=== PATIENT | female | born 1965 | race Caucasian/White ===

== ENCOUNTER 2019-05-23 12:49 | Emergency (ER) | payer SELFPAY ==
[~2019-05-23] VITALS: Ht 160 cm; Wt 112.5 kg
--- OUTSIDE RECORDS SUMMARY | 2019-05-23 12:53 | XMS REPORT ---
Author [facility] Address Unknown Phone Unavailable Care Team Providers Care Field Sales Engineer Name Role Phone Unavailable Unavailable Payers Payer Name Policy Type Policy Number Effective Date Expiration Date Problems This patient has no known problems. Allergies, Adverse Reactions, Alerts Allergy Name Allergy Type Status Severity Reaction(s) Onset Date Inactive Date Treating Clinician Comments No Known Allergies DA Active U 2019-05-09 00:00:00 No Known Allergies DA Active U 2019-04-24 00:00:00 No Known Allergies DA Active U 2019-02-19 00:00:00 No Known Allergies DA Active U 2018-11-10 00:00:00 No Known Allergies DA Active U 2018-09-01 00:00:00 No Known Allergies DA Active U 2017-04-13 00:00:00 Medications This patient has no known medications. Encounters Start Date/Time End Date/Time Encounter Type Admission Type Attending Clinicians Care Facility Care Department Encounter ID 2018-04-13 22:28:17 2018-04-13 22:28:17 Emergency [facility] [id number] 2018-04-13 21:20:50 2018-04-13 21:20:50 Outpatient [facility] [id number] Results Test Description Test Time Test Comments Text Results Atomic Results Result Comments GLUBED 2019-05-14 11:24:00 GLUBED (test code=GLUBED) 183 mg/dL 74-106 Performed by certified otr owner operator at [facility] [id number] 07:51:00* Test Item Value Reference Range Comments GLUBED (test code=GLUBED) 165 mg/dL 74-106 Performed by certified otr owner operator at [facility] [id number] 20:39:00* Test Item Value Reference Range Comments GLUBED (test code=GLUBED) 134 mg/dL 74-106 Performed by certified otr owner operator at [facility] [id number] 16:59:00* Test Item Value Reference Range Comments GLUBED (test code=GLUBED) 273 mg/dL 74-106 Performed by certified otr owner operator at [facility] [id number] 12:13:00* Test Item Value Reference Range Comments GLUBED (test code=GLUBED) 213 mg/dL 74-106 Performed by certified otr owner operator at [facility] - XR ABDOMEN AP 1 [id number] 11:34:00 FAX: Michelle Malcolm MSN [place]: B St: ADM FAX: Kade De La Garza MD Name: FLEXDIANA M [facility] : 1965 Age/S: 53/F [address] [facility] Unit #: [id number] Loc: V.3078 [place] [address] Phys: Michelle Malcolm MSN Acct: [id number] Dis Date: Status: ADM IN PHONE #: [phone] Exam Date: 05/13/2019 1120 FAX #: [phone] Reason: abd pain EXAMS: CPT CODE: [id number] XR ABDOMEN AP 1 V 98240 HISTORY: Abdominal pain. COMPARISON: CT abdomen and pelvis from May 09, 2019. No bowel obstruction. Patient is post cholecystectomy. Constipation. Phleboliths. Dextroscoliosis. IMPRESSION: No bowel obstruction. Constipation. at 1134 Reported and signed by: Orlando Babin M.D. CC: Michelle Malcolm; Kade Thornton Technologist: AUDI ADAMS Trnscrd Date/Time/By: (1133) : By: [email or web address] Orig Print D/T: S: 05/13/2019 (5915) PAGE 1 Signed Report [id number] 07:52:00* Test Item Value Reference Range Comments GLUBED (test code=GLUBED) 181 mg/dL 74-106 Performed by certified otr owner operator at [facility] BASIC METABOLIC [id number] 06:22:00* Test Item Value Reference Range Comments SODIUM (test code=NA) 137 mmol/L 136-145 POTASSIUM (test code=K) 3.2 mmol/L 3.5-5.1 CHLORIDE (test code=CL) 100.0 mmol/L 98-107 CARBON DIOXIDE (test code=CO2) 32.0 mmol/L 21-32 ANION GAP (test code=GAP) 8.2 10-20 GLUCOSE (test code=GLU) 175 mg/dL 74-106 BLOOD UREA NITROGEN (test code=BUN) 14 mg/dL 7-18 GLOMERULAR FILTRATION RATE (test code=GFR) > 60 mL/min >=60 Estimated GFR by using Modified MDRD formula.Chronic kidney disease is defined as either kidney damageor GFR <60 mL/min/1.73 m2 for >3 months. CREATININE (test code=CREAT) 0.60 mg/dL 0.55-1.02 Note change in reference range due to change in reagent. BUN/CREATININE RATIO (test code=BUN/CREA) 22.9 10-20 CALCIUM (test code=CA) 9.3 mg/dL 8.5-10.1 BASIC METABOLIC [id number] 06:19:00* Test Item Value Reference Range Comments SODIUM (test code=NA) 137 mmol/L 136-145 POTASSIUM (test code=K) 3.2 mmol/L 3.5-5.1 CHLORIDE (test code=CL) 100.0 mmol/L 98-107 CARBON DIOXIDE (test code=CO2) mmol/L 21-32 ANION GAP (test code=GAP) 10-20 GLUCOSE (test code=GLU) mg/dL 74-106 BLOOD UREA NITROGEN (test code=BUN) mg/dL 7-18 GLOMERULAR FILTRATION RATE (test code=GFR) mL/min >=60 CREATININE (test code=CREAT) mg/dL 0.55-1.02 BUN/CREATININE RATIO (test code=BUN/CREA) 10-20 CALCIUM (test code=CA) mg/dL 8.5-10.1 CBC W/AUTO [id number] 05:50:00* Test Item Value Reference Range Comments WHITE BLOOD CELL (test code=WBC) 6.1 K/mm3 4.5-12.5 RED BLOOD CELL (test code=RBC) 4.05 mill/mm3 3.7-5.2 HEMOGLOBIN (test code=HGB) 11.8 gram/dL 11.5-15.5 HEMATOCRIT (test code=HCT) 34.2 % 36.0-46.0 MEAN CELL VOLUME (test code=MCV) 84.4 fL 80-98 MEAN CELL HGB (test code=MCH) 29.1 picogram 27.0-33.0 MEAN CELL HGB CONCETRATION (test code=MCHC) 34.5 gram/dL 33.0-36.0 RED CELL DISTRIBUTION WIDTH (test code=RDW) 11.9 % 11.6-16.2 RED CELL DISTRIBUTION WIDTH SD (test code=RDW-SD) 36.2 fL 37.0-51.0 PLATELET COUNT (test code=PLT) 188 K/mm3 150-450 MEAN PLATELET VOLUME (test code=MPV) 10.4 fL 6.7-11.0 NEUTROPHIL % (test code=NT%) 50.5 % 39.0-69.0 IMMATURE GRANULOCYTE % (test code=IG%) 0.5 % 0.0-5.0 LYMPHOCYTE % (test code=LY%) 35.3 % 25.0-55.0 MONOCYTE % (test code=MO%) 8.4 % 0.0-10.0 EOSINOPHIL % (test code=EO%) 4.8 % 0.0-5.0 BASOPHIL % (test code=BA%) 0.5 % 0.0-1.0 NUCLEATED RBC % (test code=NRBC%) 0.0 % 0-0 NEUTROPHIL # (test code=NT#) 3.06 K/mm3 1.8-7.7 IMMATURE GRANULOCYTE # (test code=IG#) 0.03 x10 3/uL 0-0.03 LYMPHOCYTE # (test code=LY#) 2.14 K/mm3 1.0-5.0 MONOCYTE # (test code=MO#) 0.51 K/mm3 0-0.8 EOSINOPHIL # (test code=EO#) 0.29 K/mm3 0.0-0.5 BASOPHIL # (test code=BA#) 0.03 K/mm3 0.0-0.2 NUCLEATED RBC # (test code=NRBC#) 0.00 K/mm3 0.0-0.1 [id number] 19:43:00* Test Item Value Reference Range Comments GLUBED (test code=GLUBED) 181 mg/dL 74-106 Performed by certified otr owner operator at [facility] [id number] 16:30:00* Test Item Value Reference Range Comments GLUBED (test code=GLUBED) 266 mg/dL 74-106 Performed by certified otr owner operator at [facility] - USG NDL PLACEMENT (Bxg/Asp)2019-05-12 10:07:00 Name: DIANA MCCORD [facility] : 1965 Age/S: 53 / F [address] [facility] Unit #: [id number] Loc: [place] [address] Phys: Edgar Lundberg MD Acct: [id number] Dis Date: Status: ADM IN PHONE #: [phone] Exam Date: 05/11/2019 1015 FAX #: [phone] Reason: CYSTIC LESION EXAMS: CPT CODE: [id number] USG NDL PLACEMENT (Bxg/Asp) 51319 EXAM: Ultrasound-guided drainage of a cystic liver lesion; conscious sedation; INFORMATION: Patient admitted via the emergency room with abdominal pain. An MRI study has demonstrated a partially septated cystic lesion in the left lobe of the liver. TECHNIQUE AND FINDINGS: Conscious sedation start time: 1050 hours; Completion time: 1101 hours; Under physician supervision 2 mg of Versed and 50 mcg of fentanyl were administered intravenously for moderate sedation. The patient's heart rate, blood pressure and pulse oximetry were continuously monitored by a trained registered nurse. Physician pqoh-ip-cuob sedation time was 11 minutes. Informed consent was obtained and the patient was placed supine on the procedure table. Preliminary sonography confirmed presence of a partially septated cystic lesion in the left lobe of the liver. Conscious sedation was initiated as described above. The patient's skin in the epigastric region was prepped and draped in the usual sterile fashion. Xylocaine was administered and using sonographic guidance an 18-gauge Chiba needle was inserted into the cystic lesion. 220 mL of green fluid was drained and samples were sent to the lab. The needle was then removed. Follow-up imaging showed complete evacuation of the cystic lesion; no evidence of intra- or p erihepatic hemorrhage. IMPRESSION: 1. Successful ultraso und-guided needle drainage of a cystic lesion in the left lobe of the li ana. Greenish fluid content suggests that this lesion may represent a bi liary cystadenoma and less likely a simple hepatic cyst. 2. Cyto logy, chemistry and cultures are pending. Electronically Si gned by Guillermo Lundberg on 05/12/2019 at 1007 Reported and signed by: Edgar Lundberg M.D. PAGE 1 Signed Report (CONTIN UED) Name: DIANA MCCORD [facility] : 1965 Age/S: 53 / F [address] [facility] Unit #: [id number] Loc: [place] [address] Phys: Edgar Triplett ch, MD Acct: [id number] Dis Date: Status: ADM IN PHONE #: [phone] Exam Date: 05/11/2019 1015 FAX #: Reason: CYSTIC LESION EXAMS: CPT CODE: [id number] USG NDL PLACEMENT (Bxg/Asp) 35186 <Continued> CC: Kade Thornton Technologist: NITHYA MCKEON RT(R),RDMS Trnmnb Date/Time: 05/12/2019 (1007) tLUCAS Orig Print D/T: S: 05/12/2019 (1011) Probe: PAGE 2 Signed Report [id number] 07:57:00* Test Item Value Reference Range Comments GLUBED (test code=GLUBED) 193 mg/dL 74-106 Performed by certified otr owner operator at [facility] BODY FLUID CELL [id number] 23:31:00* Test Item Value Reference Range Comments FLUID SOURCE (test code=SOURCEFL) ABSCESS FLUID COLOR (test code=COLFL) GREEN COLORLESS FLUID APPEARANCE (test code=APPFL) HAZY FLUID WBC (test code=WBCFL) TEST NOT PERFORMED per mm3 0-150 FLUID WBC AUTO (test code=WBCFLA) 1 cells/uL FLUID RBC (test code=RBCFL) TEST NOT PERFORMED per mm3 0-50 FLUID RBC AUTO (test code=RBCFLA) 0 cells/uL FLUID TOTAL CELLS (test code=TCFL) 1 cells/uL >0 Fluid WBC RBC Type cells/uL cells/uL CSF (0-5) n/a Peritoneal n/a n/a Pleural n/a n/a Synovial <200 n/a CSF (0-30) n/a TOTAL CELLS COUNTED ON DIFF (test code=TOTCELLFL) 1 cells REVIEWED BY (test code=REVIEW) PATHOLOGIST SPECIMEN COMMENTS: CYSTIC LESION ASPIRATION.SPECIMEN COMMENTS: CYSTIC LESION ASP IRATIONFLUID [id number] 23:31:00* Test Item Value Reference Range Comments FLUID GLUCOSE (test code=GLUFL) 4 mg/dL SPECIMEN COMMENTS: CYSTIC LESION ASPIRATION.SPECIMEN COMMENTS: CYSTIC LESION ASP IRATIONFLUID [id number] 23:31:00* Test Item Value Reference Range Comments FLUID PROTEIN (test code=PROTFL) 0.1 gram/dL SPECIMEN COMMENTS: CYSTIC LESION ASPIRATION.SPECIMEN COMMENTS: CYSTIC LESION ASP IRATIONFLUID [id number] 23:31:00* Test Item Value Reference Range Comments FLUID LDH (test code=LDHFL) < 6 IUnit/L SPECIMEN COMMENTS: CYSTIC LESION ASPIRATION.SPECIMEN COMMENTS: CYSTIC LESION ASP [id number] 20:20:00* Test Item Value Reference Range Comments GLUBED (test code=GLUBED) 174 mg/dL 74-106 Performed by certified otr owner operator at [facility] [id number] 16:35:00* Test Item Value Reference Range Comments GLUBED (test code=GLUBED) 177 mg/dL 74-106 Performed by certified otr owner operator at [facility] LIPASE [id number] 15:45:00* Test Item Value Reference Range Comments LIPASE FLUID (test code=LIPFL) < 10 144-286 SPECIMEN COMMENTS: fluidFLUID [id number] 15:28:00* Test Item Value Reference Range Comments FLUID AMYLASE (test code=AMYFL) < 2 Unit/L BILIRUBIN [id number] 14:32:00* Test Item Value Reference Range Comments BILIRUBIN TOTAL (test code=BILT) 1.80 mg/dL 0.0-1.0 SPECIMEN COMMENTS: Cystic lesion aspiration fluidSPECIMEN COMMENTS: fluid in lab BILBODY FLUID CELL [id number] 14:17:00* Test Item Value Reference Range Comments FLUID SOURCE (test code=SOURCEFL) FLUID COLOR (test code=COLFL) COLORLESS FLUID APPEARANCE (test code=APPFL) FLUID WBC (test code=WBCFL) per mm3 0-150 FLUID WBC AUTO (test code=WBCFLA) 1 cells/uL FLUID RBC (test code=RBCFL) per mm3 0-50 FLUID RBC AUTO (test code=RBCFLA) 0 cells/uL FLUID TOTAL CELLS (test code=TCFL) 1 cells/uL >0 Fluid WBC RBC Type cells/uL cells/uL CSF (0-5) n/a Peritoneal n/a n/a Pleural n/a n/a Synovial <200 n/a CSF (0-30) n/a TOTAL CELLS COUNTED ON DIFF (test code=TOTCELLFL) cells REVIEWED BY (test code=REVIEW) PATHOLOGIST SPECIMEN COMMENTS: CYSTIC LESION ASPIRATION.SPECIMEN COMMENTS: CYSTIC LESION ASP IRATIONFLUID [id number] 14:17:00* Test Item Value Reference Range Comments FLUID GLUCOSE (test code=GLUFL) 4 mg/dL SPECIMEN COMMENTS: CYSTIC LESION ASPIRATION.SPECIMEN COMMENTS: CYSTIC LESION ASP IRATIONFLUID [id number] 14:17:00* Test Item Value Reference Range Comments FLUID PROTEIN (test code=PROTFL) 0.1 gram/dL SPECIMEN COMMENTS: CYSTIC LESION ASPIRATION.SPECIMEN COMMENTS: CYSTIC LESION ASP IRATIONFLUID [id number] 14:17:00* Test Item Value Reference Range Comments FLUID LDH (test code=LDHFL) < 6 IUnit/L SPECIMEN COMMENTS: CYSTIC LESION ASPIRATION.SPECIMEN COMMENTS: CYSTIC LESION ASP IRATIONBODY FLUID CELL [id number] 14:01:00* Test Item Value Reference Range Comments FLUID SOURCE (test code=SOURCEFL) FLUID COLOR (test code=COLFL) COLORLESS FLUID APPEARANCE (test code=APPFL) FLUID WBC (test code=WBCFL) per mm3 0-150 FLUID RBC (test code=RBCFL) per mm3 0-50 FLUID TOTAL CELLS (test code=TCFL) cells/uL >0 TOTAL CELLS COUNTED ON DIFF (test code=TOTCELLFL) cells REVIEWED BY (test code=REVIEW) PATHOLOGIST SPECIMEN COMMENTS: CYSTIC LESION ASPIRATION.SPECIMEN COMMENTS: CYSTIC LESION ASP IRATIONFLUID [id number] 14:01:00* Test Item Value Reference Range Comments FLUID GLUCOSE (test code=GLUFL) 4 mg/dL SPECIMEN COMMENTS: CYSTIC LESION ASPIRATION.SPECIMEN COMMENTS: CYSTIC LESION ASP IRATIONFLUID [id number] 14:01:00* Test Item Value Reference Range Comments FLUID PROTEIN (test code=PROTFL) 0.1 gram/dL SPECIMEN COMMENTS: CYSTIC LESION ASPIRATION.SPECIMEN COMMENTS: CYSTIC LESION ASP IRATIONFLUID [id number] 14:01:00* Test Item Value Reference Range Comments FLUID LDH (test code=LDHFL) < 6 IUnit/L SPECIMEN COMMENTS: CYSTIC LESION ASPIRATION.SPECIMEN COMMENTS: CYSTIC LESION ASP IRATIONBODY FLUID CELL [id number] 13:53:00* Test Item Value Reference Range Comments FLUID SOURCE (test code=SOURCEFL) FLUID COLOR (test code=COLFL) COLORLESS FLUID APPEARANCE (test code=APPFL) FLUID WBC (test code=WBCFL) per mm3 0-150 FLUID RBC (test code=RBCFL) per mm3 0-50 FLUID TOTAL CELLS (test code=TCFL) cells/uL >0 TOTAL CELLS COUNTED ON DIFF (test code=TOTCELLFL) cells REVIEWED BY (test code=REVIEW) PATHOLOGIST SPECIMEN COMMENTS: CYSTIC LESION ASPIRATION.SPECIMEN COMMENTS: CYSTIC LESION ASP IRATIONFLUID [id number] 13:53:00* Test Item Value Reference Range Comments FLUID GLUCOSE (test code=GLUFL) 4 mg/dL SPECIMEN COMMENTS: CYSTIC LESION ASPIRATION.SPECIMEN COMMENTS: CYSTIC LESION ASP IRATIONFLUID [id number] 13:53:00* Test Item Value Reference Range Comments FLUID PROTEIN (test code=PROTFL) gram/dL SPECIMEN COMMENTS: CYSTIC LESION ASPIRATION.SPECIMEN COMMENTS: CYSTIC LESION ASP IRATIONFLUID [id number] 13:53:00* Test Item Value Reference Range Comments FLUID LDH (test code=LDHFL) IUnit/L SPECIMEN COMMENTS: CYSTIC LESION ASPIRATION.SPECIMEN COMMENTS: CYSTIC LESION ASP [id number] 12:02:00* Test Item Value Reference Range Comments GLUBED (test code=GLUBED) 144 mg/dL 74-106 Performed by certified otr owner operator at [facility] - US ABDOMEN [id number] 11:46:00 Name: DIANA MCCORD [facility] : 1965 Age/S: 53 / F [address] [facility] Unit #: [id number] Loc: [place] [address] Phys: Edgar Lundberg MD Acct: [id number] Dis Date: Status: ADM IN PHONE #: [phone] Exam Date: 05/11/2019 1015 FAX #: [phone] Reason: CYSTIC LESION EXAMS: CPT CODE: [id number] ABDOMEN LTD 65828 HISTORY: Cystic lesion. COMPARISON: MRCP and CT scan from previous exam. The liver is hyperechogenic suggesting mild fibrofatty infiltration which slightly limits evaluation for intrahepatic solid mass. Complex septated cystic mass in the left lobe noted again measuring 8.9 x 8.8 x 8.3 cm. Etiology is not clear. Liver measured 19.2 cm in length. No intrahepatic biliary ductal dilatation. The intrahepatic ducts dilatation seen on the CT scan on the left side is not clearly visible. CBD is normal at 4.5 mm. Main portal vein is patent with hepatopedal flow and normal spectral waveform. Patient is post cholecystectomy. No ascites. Right kidney is free from hydronephrosis and calyceal stones. Normal echogenicity and texture. Right kidney measured 12.4 cm in length. Visualized portions of the IVC, aorta and pancreas are normal however imaged incompletely. IMPRESSION: Complex cystic septated mass within the left lobe measuring 8.9 x 8.8 x 8.3 cm. Etiology is not clear. at 1146 Reported and signed by: Orlando Babin M.D. CC: Kade Thornton Technologist: NITHYA MCKEON(R),RDMS Trnscb Date/Time: 05/11/2019 (5288) t.TH4 Orig Print D/T: S: 05/11/2019 (1794) Probe: PAGE 1 Signed Report [id number] 10:03:00* Test Item Value Reference Range Comments GLYCOSYLATED HEMOGLOBIN (HA1C) (test code=GLYHGB) 7.8 % HbA1 4.8-6.0 ESTIMATED AVERAGE GLUCOSE (test code=EAG) 177 MG/DL B-TYPE NATRIURETIC [id number] 09:03:00* Test Item Value Reference Range Comments B-TYPE NATRIURETIC PEPTIDE (test code=BNP) 102.51 pgram/mL 0-100 [id number] 08:51:00* Test Item Value Reference Range Comments GLUBED (test code=GLUBED) 143 mg/dL 74-106 Performed by certified otr owner operator at [facility] BASIC METABOLIC [id number] 08:41:00* Test Item Value Reference Range Comments SODIUM (test code=NA) 140 mmol/L 136-145 POTASSIUM (test code=K) 3.4 mmol/L 3.5-5.1 CHLORIDE (test code=CL) 105.0 mmol/L 98-107 CARBON DIOXIDE (test code=CO2) 30.0 mmol/L 21-32 ANION GAP (test code=GAP) 8.4 10-20 GLUCOSE (test code=GLU) 148 mg/dL 74-106 BLOOD UREA NITROGEN (test code=BUN) 12 mg/dL 7-18 GLOMERULAR FILTRATION RATE (test code=GFR) > 60 mL/min >=60 Estimated GFR by using Modified MDRD formula.Chronic kidney disease is defined as either kidney damageor GFR <60 mL/min/1.73 m2 for >3 months. CREATININE (test code=CREAT) 0.50 mg/dL 0.55-1.02 Note change in reference range due to change in reagent. BUN/CREATININE RATIO (test code=BUN/CREA) 24.0 10-20 CALCIUM (test code=CA) 8.7 mg/dL 8.5-10.1 [id number] 08:41:00* Test Item Value Reference Range Comments MAGNESIUM (test code=MAG) 1.9 mg/dL 1.8-2.4 BASIC METABOLIC [id number] 08:29:00* Test Item Value Reference Range Comments SODIUM (test code=NA) 140 mmol/L 136-145 POTASSIUM (test code=K) 3.4 mmol/L 3.5-5.1 CHLORIDE (test code=CL) 105.0 mmol/L 98-107 CARBON DIOXIDE (test code=CO2) mmol/L 21-32 ANION GAP (test code=GAP) 10-20 GLUCOSE (test code=GLU) mg/dL 74-106 BLOOD UREA NITROGEN (test code=BUN) mg/dL 7-18 GLOMERULAR FILTRATION RATE (test code=GFR) mL/min >=60 CREATININE (test code=CREAT) mg/dL 0.55-1.02 BUN/CREATININE RATIO (test code=BUN/CREA) 10-20 CALCIUM (test code=CA) mg/dL 8.5-10.1 [id number] 08:29:00* Test Item Value Reference Range Comments MAGNESIUM (test code=MAG) mg/dL 1.8-2.4 CBC W/AUTO [id number] 08:24:00* Test Item Value Reference Range Comments WHITE BLOOD CELL (test code=WBC) 7.0 K/mm3 4.5-12.5 RED BLOOD CELL (test code=RBC) 4.35 mill/mm3 3.7-5.2 HEMOGLOBIN (test code=HGB) 12.7 gram/dL 11.5-15.5 HEMATOCRIT (test code=HCT) 37.0 % 36.0-46.0 MEAN CELL VOLUME (test code=MCV) 85.1 fL 80-98 MEAN CELL HGB (test code=MCH) 29.2 picogram 27.0-33.0 MEAN CELL HGB CONCETRATION (test code=MCHC) 34.3 gram/dL 33.0-36.0 RED CELL DISTRIBUTION WIDTH (test code=RDW) 11.9 % 11.6-16.2 RED CELL DISTRIBUTION WIDTH SD (test code=RDW-SD) 36.5 fL 37.0-51.0 PLATELET COUNT (test code=PLT) 224 K/mm3 150-450 MEAN PLATELET VOLUME (test code=MPV) 10.2 fL 6.7-11.0 NEUTROPHIL % (test code=NT%) 55.6 % 39.0-69.0 IMMATURE GRANULOCYTE % (test code=IG%) 0.4 % 0.0-5.0 LYMPHOCYTE % (test code=LY%) 29.0 % 25.0-55.0 MONOCYTE % (test code=MO%) 10.0 % 0.0-10.0 EOSINOPHIL % (test code=EO%) 4.1 % 0.0-5.0 BASOPHIL % (test code=BA%) 0.9 % 0.0-1.0 NUCLEATED RBC % (test code=NRBC%) 0.0 % 0-0 NEUTROPHIL # (test code=NT#) 3.91 K/mm3 1.8-7.7 IMMATURE GRANULOCYTE # (test code=IG#) 0.03 x10 3/uL 0-0.03 LYMPHOCYTE # (test code=LY#) 2.04 K/mm3 1.0-5.0 MONOCYTE # (test code=MO#) 0.70 K/mm3 0-0.8 EOSINOPHIL # (test code=EO#) 0.29 K/mm3 0.0-0.5 BASOPHIL # (test code=BA#) 0.06 K/mm3 0.0-0.2 NUCLEATED RBC # (test code=NRBC#) 0.00 K/mm3 0.0-0.1 CBC W/AUTO [id number] 08:22:00* Test Item Value Reference Range Comments WHITE BLOOD CELL (test code=WBC) K/mm3 4.5-12.5 RED BLOOD CELL (test code=RBC) mill/mm3 3.7-5.2 HEMOGLOBIN (test code=HGB) 12.7 gram/dL 11.5-15.5 HEMATOCRIT (test code=HCT) 37.0 % 36.0-46.0 MEAN CELL VOLUME (test code=MCV) fL 80-98 MEAN CELL HGB (test code=MCH) picogram 27.0-33.0 MEAN CELL HGB CONCETRATION (test code=MCHC) gram/dL 33.0-36.0 RED CELL DISTRIBUTION WIDTH (test code=RDW) % 11.6-16.2 RED CELL DISTRIBUTION WIDTH SD (test code=RDW-SD) fL 37.0-51.0 PLATELET COUNT (test code=PLT) K/mm3 150-450 MEAN PLATELET VOLUME (test code=MPV) fL 6.7-11.0 NEUTROPHIL % (test code=NT%) % 39.0-69.0 IMMATURE GRANULOCYTE % (test code=IG%) % 0.0-5.0 LYMPHOCYTE % (test code=LY%) % 25.0-55.0 MONOCYTE % (test code=MO%) % 0.0-10.0 EOSINOPHIL % (test code=EO%) % 0.0-5.0 BASOPHIL % (test code=BA%) % 0.0-1.0 NEUTROPHIL # (test code=NT#) K/mm3 1.8-7.7 LYMPHOCYTE # (test code=LY#) K/mm3 1.0-5.0 MONOCYTE # (test code=MO#) K/mm3 0-0.8 EOSINOPHIL # (test code=EO#) K/mm3 0.0-0.5 BASOPHIL # (test code=BA#) K/mm3 0.0-0.2 [id number] 20:40:00* Test Item Value Reference Range Comments GLUBED (test code=GLUBED) 222 mg/dL 74-106 Performed by certified otr owner operator at [facility] [id number] 16:20:00* Test Item Value Reference Range Comments GLUBED (test code=GLUBED) 190 mg/dL 74-106 [facility]~ [id number] 11:00:00* Test Item Value Reference Range Comments GLUBED (test code=GLUBED) 160 mg/dL 74-106 Performed by certified otr owner operator at [facility] - MRI ABDOMEN W/O [id number] 09:25:00 FAX: Moiz Martinez MD [place]: B St: ADM Name: DIANA SHELDON [facility] : [birth year] Age/S: 53/F [place] [address] Unit #: [id number] Loc: [place] [address] Phys: Moiz Martinez MD Acct: [id number] Dis Date: Status: ADM IN PHONE #: [phone] Exam Date: 05/10/2019 0855 FAX #: [phone] Reason: investigation of bialoma vs. focal obstruction EXAMS: CPT CODE: [id number] MRI ABDOMEN W/O CONT 21790 HISTORY: Biloma versus focal obstr uction. COMPARISON: CT scan from previous day. MRCP: 3-D images. CBD is normal at 5.2 mm. No filling defects to suggest CBD stones. The common hepatic and the right and left hepatic ducts are normal. Minimal dilatation of the far lateral intrahepatic ducts in association with a complex septated cystic mass seen likely from extrinsic mass effect. The septated cystic lesion measured 8.8 cm. The etiology is not clear. This would be amenable for aspiration. Patient is post cholecystectomy. Pancreatic duct is normal. IMPRESSION: Normal CBD at 5.2 mm. Intrahepatic ducts in the far distal left lobe are mildly dilated which may represent extrinsic mass effect from the complex septated cystic lesion noted within the liver. The lesion m easures 8.8 cm. This would be amenable for aspiration. Electronicall y Signed by Guillermo Babin on 05/10/2019 at 0925 Repo rted and signed by: Orlando Babin M.D. CC: Moiz Martinez MD Technologist: [address])(MR) Trnscrd Date/Time/By: 05/10/2019 (09) : By: [email or web address] Orig Print D/T: S: 05/10/2019 (2137) PAGE 1 Signed Report [id number] 07:59:00* Test Item Value Reference Range Comments GLUBED (test code=GLUBED) 152 mg/dL 74-106 Performed by certified otr owner operator at [facility] [id number] 07:35:00* Test Item Value Reference Range Comments TROPONIN-I (test code=TROPI) 0.017 ng/mL 0-0.045 COMMENTS TO TARIFF SUPERVISOR: COLLECT 3 HOURS AFTER PREVIOUS [id number] 02:04:00* Test Item Value Reference Range Comments TROPONIN-I (test code=TROPI) <0.015 ng/mL 0-0.045 COMMENTS TO TARIFF SUPERVISOR: COLLECT 3 HOURS AFTER PREVIOUS [id number] 01:09:00* Test Item Value Reference Range Comments GLUBED (test code=GLUBED) 156 mg/dL 74-106 Performed by certified otr owner operator at [facility] - CT ABD PELVIS [id number] 20:46:00 Name: DIANA MCCORD [facility] : 1965 Age/S: 53 / F [address] [facility] Unit #: [id number] Loc: [place] [address] Phys: Moiz Martinez MD Acct: [id number] Dis Date: Status: REG ER PHONE #: [phone] Exam Date: 05/09/2019 194 FAX #: [phone] Reason: R. sided abdminal pain EXAMS: CPT CODE: [id number] CT ABD PELVIS W/CONT 55268 REASON FOR EXAM: R. sided abdminal pain EXAM ORDER DATE: 05/09/2019 6:51 PM Ordering M.D.: Moiz Martinez MD PROCEDURE: - CT ABD PELVIS W/CONT COMPARISON: FINDINGS: CT images of the abdomen and pelvis were obtained with IV and without oral contrast at 5mm. Dose modulation, iterative reconstruction, and/or weight based adjustment of the MA/KV was utilized to reduce the radiation dose to as low as reasonably achievable. Intravenous contrast: 100cc of Omnipaque 370. The spleen and pancreas are are grossly within normal limits. The patient is status post cholecystectomy The kidneys are within normal limits. The urinary bladder is unremarkable. The colon, small bowel, and stomach are within normal limits without evidence of obstruction. The appendix is not seen No evidence of free air or free fluid. The uterus is unremarkable. IMPRESSION: 8 cm loculated cystic mass in the left lobe of the liver associated with minimal intrahepatic biliary distention most likely represent a contained biloma or focal intrahepatic biliary obstruction. at 2046 Reported and signed by: Emil Rodriguez M.D. CC: Moiz Martinez MD Technologist:Janice Sinha RT(R); HALEIGH Laughlin CTDI: DLP: Trnscb Date/Time: 05/09/2019 (2045) Poppy Orig Print D/T: S: 05/09/2019 (2048) PAGE 1 Signed Report B-TYPE NATRIURETIC [id number] 18:51:00* Test Item Value Reference Range Comments B-TYPE NATRIURETIC PEPTIDE (test code=BNP) 84.19 pgram/mL 0-100 PROTHROMBIN [id number] 18:14:00* Test Item Value Reference Range Comments PROTHROMBIN TIME PATIENT (test code=PTP) 10.7 seconds 9.0-14.0 INTERNATIONAL NORMAL RATIO (test code=INR) 0.9 0.8-1.2 The therapeutic range for oral anticoagulant therapy formost indications is an international normalized ratio (INR)of between 2.0 and 3.0. The recommended therapeutic INRrange for various clinical situations is listed below: Clinical Situation INR range Pulmonary e mbolism treatment (2.0-3.0)Venous thrombosis treatmentVenous thrombosis prophylaxis (high risk surgery)Prevention of systemic embolism from: Acute myocardial infarction Valvular heart disease Atrial fibrillation Mechanical prosthetic heart valves (2.5-3.5) IS PATIENT ON ANTICOAGULANTS? NTHROMBOPLASTIN TIME [id number] 18:14:00* Test Item Value Reference Range Comments THROMBOPLASTIN TIME PARTIAL (test code=PTT) 30.2 seconds 25.0-36.5 IS PATIENT ON ANTICOAGULANTS? [id number] 18:14:00* Test Item Value Reference Range Comments D-DIMER (test code=DDIMER) 395.00 ng/mLFEU 0-500 Clinical Cut-off value for D- Dimer is 500 ng/mL FEU. Comment: The [employer] D-Dimer assay is intended for use asan aid in the diagnosis of venous thromboembolism (VTE)[deep vein thrombosis (DVT) or pulmonary embolism (PE)].The measurement of D-Dimer should not be used as an aid inthe diagnosis of VTE, in patient with: -Therapeutic dose anticoagulant therapy for >24 hours -Fibrinolytic therapy within previous 7 days -Trauma or surgery within previous 4 weeks -Disseminated malignancies - Aortic aneurysm -Sepsis, severe infections, pneumonia, severe skin infections -Liver cirrhosis - IS PATIENT ON ANTICOAGULANTS? NBASIC METABOLIC [id number] 18:11:00* Test Item Value Reference Range Comments SODIUM (test code=NA) 135 mmol/L 136-145 POTASSIUM (test code=K) 3.4 mmol/L 3.5-5.1 CHLORIDE (test code=CL) 102.0 mmol/L 98-107 CARBON DIOXIDE (test code=CO2) 25.0 mmol/L 21-32 ANION GAP (test code=GAP) 11.4 10-20 GLUCOSE (test code=GLU) 324 mg/dL 74-106 BLOOD UREA NITROGEN (test code=BUN) 20 mg/dL 7-18 GLOMERULAR FILTRATION RATE (test code=GFR) > 60 mL/min >=60 Estimated GFR by using Modified MDRD formula.Chronic kidney disease is defined as either kidney damageor GFR <60 mL/min/1.73 m2 for >3 months. CREATININE (test code=CREAT) 0.70 mg/dL 0.55-1.02 Note change in reference range due to change in reagent. BUN/CREATININE RATIO (test code=BUN/CREA) 28.6 10-20 CALCIUM (test code=CA) 9.5 mg/dL 8.5-10.1 HEPATIC FUNCTION [id number] 18:11:00* Test Item Value Reference Range Comments TOTAL PROTEIN (test code=PROT) 7.8 gram/dL 6.4-8.2 ALBUMIN (test code=ALB) 3.5 g/dL 3.4-5.0 GLOBULIN (test code=GLOB) 4.3 gram/dL 2.7-4.2 ALBUMIN/GLOBULIN RATIO (test code=A/G) 0.8 0.75-1.50 BILIRUBIN TOTAL (test code=BILT) 0.40 mg/dL 0.0-1.0 BILIRUBIN DIRECT (test code=BILD) 0.09 mg/dL 0.0-0.20 SGOT/AST (test code=AST) 20 IUnit/L 15-37 SGPT/ALT (test code=ALT) 27 IUnit/L 12-78 ALKALINE PHOSPHATASE TOTAL (test code=ALKP) 99 IUnit/L 45-117 Note change in reference range due to change in reagent. [id number] 18:11:00* Test Item Value Reference Range Comments LIPASE (test code=LIP) 206 U/L 73.0-393.0 [id number] 18:11:00* Test Item Value Reference Range Comments TROPONIN-I (test code=TROPI) <0.015 ng/mL 0-0.045 BASIC METABOLIC [id number] 17:58:00* Test Item Value Reference Range Comments SODIUM (test code=NA) 135 mmol/L 136-145 POTASSIUM (test code=K) 3.4 mmol/L 3.5-5.1 CHLORIDE (test code=CL) 102.0 mmol/L 98-107 CARBON DIOXIDE (test code=CO2) mmol/L 21-32 ANION GAP (test code=GAP) 10-20 GLUCOSE (test code=GLU) mg/dL 74-106 BLOOD UREA NITROGEN (test code=BUN) mg/dL 7-18 GLOMERULAR FILTRATION RATE (test code=GFR) mL/min >=60 CREATININE (test code=CREAT) mg/dL 0.55-1.02 BUN/CREATININE RATIO (test code=BUN/CREA) 10-20 CALCIUM (test code=CA) mg/dL 8.5-10.1 HEPATIC FUNCTION [id number] 17:58:00* Test Item Value Reference Range Comments TOTAL PROTEIN (test code=PROT) gram/dL 6.4-8.2 ALBUMIN (test code=ALB) g/dL 3.4-5.0 GLOBULIN (test code=GLOB) gram/dL 2.7-4.2 ALBUMIN/GLOBULIN RATIO (test code=A/G) 0.75-1.50 BILIRUBIN TOTAL (test code=BILT) mg/dL 0.0-1.0 BILIRUBIN DIRECT (test code=BILD) mg/dL 0.0-0.20 SGOT/AST (test code=AST) IUnit/L 15-37 SGPT/ALT (test code=ALT) IUnit/L 12-78 ALKALINE PHOSPHATASE TOTAL (test code=ALKP) IUnit/L 45-117 [id number] 17:58:00* Test Item Value Reference Range Comments LIPASE (test code=LIP) U/L 73.0-393.0 [id number] 17:58:00* Test Item Value Reference Range Comments TROPONIN-I (test code=TROPI) ng/mL 0-0.045 - XR CHEST 1 [id number] 17:58:00 FAX: Moiz Martinez MD [place]: St: REG Name: DIANA SHELDON [facility] : [birth year] Age/S: 53/F [address] [facility] Unit #: [id number] Loc: [place] [address] Phys: Moiz Martinez MD Acct: [id number] Dis Date: Status: REG ER PHONE #: [phone] Exam Date: 05/09/2019 1754 FAX #: [phone] Reason: CHEST PAIN EXAMS: CPT CODE: [id number] XR CHEST 1 V 40559 REASON FOR EXAM: CHEST PAIN EXAM ORDER DATE: 05/09/2019 5:27 PM Ordering Guillermo: Moiz Martinez MD PROCEDURE: - XR CHEST 1 V COMPARISON: FINDINGS: Portable AP frontal view of the chest obtained at 5:54 PM shows clear lungs without evidence of consolidation. There is no evidence of effusion. The heart size is within normal limits. Pulmonary vasculatures are unremarkable. IMPRESSION: No active disease. at 8188 Reported and signed by: Emil Rodriguez M.D. CC: Moiz Martinez MD Technologist: RT Tarsha(Adrianne Trnscrd Date/Time/By: 05/09/2019 ( 3638) : By: Poppy Orig Print D/T: S: 05/09/2019 (6255) PAGE 1 Signed Report CBC W/O [id number] 17:45:00* Test Item Value Reference Range Comments WHITE BLOOD CELL (test code=WBC) 8.6 K/mm3 4.5-12.5 RED BLOOD CELL (test code=RBC) 4.79 mill/mm3 3.7-5.2 HEMOGLOBIN (test code=HGB) 14.2 gram/dL 11.5-15.5 HEMATOCRIT (test code=HCT) 39.1 % 36.0-46.0 MEAN CELL VOLUME (test code=MCV) 81.6 fL 80-98 MEAN CELL HGB (test code=MCH) 29.6 picogram 27.0-33.0 MEAN CELL HGB CONCETRATION (test code=MCHC) 36.3 gram/dL 33.0-36.0 RED CELL DISTRIBUTION WIDTH (test code=RDW) 11.9 % 11.6-16.2 PLATELET COUNT (test code=PLT) 246 K/mm3 150-450 MEAN PLATELET VOLUME (test code=MPV) 10.4 fL 6.7-11.0 CBC W/O [id number] 17:39:00* Test Item Value Reference Range Comments WHITE BLOOD CELL (test code=WBC) K/mm3 4.5-12.5 RED BLOOD CELL (test code=RBC) mill/mm3 3.7-5.2 HEMOGLOBIN (test code=HGB) 14.2 gram/dL 11.5-15.5 HEMATOCRIT (test code=HCT) 39.1 % 36.0-46.0 MEAN CELL VOLUME (test code=MCV) fL 80-98 MEAN CELL HGB (test code=MCH) picogram 27.0-33.0 MEAN CELL HGB CONCETRATION (test code=MCHC) gram/dL 33.0-36.0 RED CELL DISTRIBUTION WIDTH (test code=RDW) % 11.6-16.2 PLATELET COUNT (test code=PLT) K/mm3 150-450 MEAN PLATELET VOLUME (test code=MPV) fL 6.7-11.0 [id number] 19:51:00* Test Item Value Reference Range Comments TROPONIN-I (test code=TROPI) 0.02 ng/mL 0.00-0.056 - XR CHEST 2 [id number] 17:38:00 FAX: Michelle Rowland [phone] [place]: [place] St: REG Name: DIANA SHELDON [facility] : [birth year] Age/S: 53/F [address] [facility] [address] Unit #: [id number] Loc: [facility] [address] Phys: Michelle Rowland MD [place], [place] [address] Acct: [id number] Dis Date: Status: REG ER PHONE #: Exam Date: 04/24/2019 1725 FAX #: Reason: chest pain EXAMS: CPT CODE: [id number] XR CHEST 2 V [id number] REASON FOR EXAM: chest pain Exam Order Date: 04/24/2019 5:02 PM Ordering M.Joselyn.: Michelle Rowland MD PROCEDURE: - XR CHEST 2 V COM PARISON: FINDINGS: PA and lateral views of the chest show clear l ungs without evidence of consolidation. No evidence of effusion. The heart size is within normal limits. Pulmonary vasculatures are unremarkable. The osseous structures are grossly intact. IMPRESSION: No ac tive disease. at 1739 Reported and signed by: Emil Rodriguez M.D. CC: Michelle Rowland MD Technologist: JETT KOEHLER RT(R)(CT) Trnscrd Date/Time/By: 04/24/2019 (0757) : By: Poppy Orig Print D/T: S: 04/24/2019 (0858) PAGE 1 Signed Report BASIC METABOLIC [id number] 17:30:00* Test Item Value Reference Range Comments SODIUM (test code=NA) 138 mmol/L 128-145 POTASSIUM (test code=K) 3.2 mmol/L 3.5-5.1 CHLORIDE (test code=CL) 99.0 mmol/L 98-107 CARBON DIOXIDE (test code=CO2) 30.0 mmol/L 22-29 ANION GAP (test code=GAP) 12 mmol/L 10-20 GLUCOSE (test code=GLU) 301 mg/dL 70-110 BLOOD UREA NITROGEN (test code=BUN) 22 mg/dL 7-22 GLOMERULAR FILTRATION RATE (test code=GFR) > 60 mL/min >=60 Estimated GFR by using Modified MDRD formula.Chronic kidney disease is defined as either kidney damageor GFR <60 mL/min/1.73 m2 for >3 months. CREATININE (test code=CREAT) 0.77 mg/dL 0.55-1.3 BUN/CREATININE RATIO (test code=BUN/CREA) 28.6 10-20 CALCIUM (test code=CA) 9.3 mg/dL 8.0-10.5 [id number] 17:30:00* Test Item Value Reference Range Comments TROPONIN-I (test code=TROPI) 0.02 ng/mL 0.00-0.056 B-TYPE NATRIURETIC [id number] 17:24:00* Test Item Value Reference Range Comments B-TYPE NATRIURETIC PEPTIDE (test code=BNP) 68.8 pg/mL 0-100 BASIC METABOLIC [id number] 17:17:00* Test Item Value Reference Range Comments SODIUM (test code=NA) 138 mmol/L 128-145 POTASSIUM (test code=K) 3.2 mmol/L 3.5-5.1 CHLORIDE (test code=CL) 99.0 mmol/L 98-107 CARBON DIOXIDE (test code=CO2) 30.0 mmol/L 22-29 ANION GAP (test code=GAP) 12 mmol/L 10-20 GLUCOSE (test code=GLU) 301 mg/dL 70-110 BLOOD UREA NITROGEN (test code=BUN) 22 mg/dL 7-22 GLOMERULAR FILTRATION RATE (test code=GFR) > 60 mL/min >=60 Estimated GFR by using Modified MDRD formula.Chronic kidney disease is defined as either kidney damageor GFR <60 mL/min/1.73 m2 for >3 months. CREATININE (test code=CREAT) 0.77 mg/dL 0.55-1.3 BUN/CREATININE RATIO (test code=BUN/CREA) 28.6 10-20 CALCIUM (test code=CA) 9.3 mg/dL 8.0-10.5 [id number] 17:17:00* Test Item Value Reference Range Comments TROPONIN-I (test code=TROPI) ng/mL 0-0.045 CBC W/AUTO [id number] 17:06:00* Test Item Value Reference Range Comments WHITE BLOOD CELL (test code=WBC) 7.3 K/mm3 4.5-12.5 RED BLOOD CELL (test code=RBC) 4.37 mill/mm3 3.7-5.2 HEMOGLOBIN (test code=HGB) 13.0 gram/dL 11.5-15.5 HEMATOCRIT (test code=HCT) 36.3 % 36.0-46.0 MEAN CELL VOLUME (test code=MCV) 83.1 fL 80-98 MEAN CELL HGB (test code=MCH) 29.7 picogram 27.0-33.0 MEAN CELL HGB CONCETRATION (test code=MCHC) 35.8 gram/dL 33.0-36.0 RED CELL DISTRIBUTION WIDTH (test code=RDW) 11.9 % 11.6-16.2 RED CELL DISTRIBUTION WIDTH SD (test code=RDW-SD) 36.1 fL 37.0-51.0 PLATELET COUNT (test code=PLT) 203 K/mm3 150-450 MEAN PLATELET VOLUME (test code=MPV) 10.2 fL 6.7-11.0 NEUTROPHIL % (test code=NT%) 60.1 % 39.0-69.0 LYMPHOCYTE % (test code=LY%) 29.0 % 25.0-55.0 MONOCYTE % (test code=MO%) 7.4 % 0.0-10.0 EOSINOPHIL % (test code=EO%) 2.5 % 0.0-5.0 BASOPHIL % (test code=BA%) 0.7 % 0.0-1.0 NEUTROPHIL # (test code=NT#) 4.37 K/mm3 1.8-7.7 LYMPHOCYTE # (test code=LY#) 2.11 K/mm3 1.0-5.0 MONOCYTE # (test code=MO#) 0.54 K/mm3 0-0.8 EOSINOPHIL # (test code=EO#) 0.18 K/mm3 0.0-0.5 BASOPHIL # (test code=BA#) 0.05 K/mm3 0.0-0.2 MANUAL DIFF REQUIRED (test code=MDIFF) NO [id number] 11:20:00* Test Item Value Reference Range Comments GLUBED (test code=GLUBED) 240 mg/dL 74-106 Performed by certified otr owner operator at [facility] [id number] 07:29:00* Test Item Value Reference Range Comments GLUBED (test code=GLUBED) 154 mg/dL 74-106 Performed by certified otr owner operator at [facility] [id number] 20:56:00* Test Item Value Reference Range Comments GLUBED (test code=GLUBED) 148 mg/dL 74-106 Performed by certified otr owner operator at [facility] [id number] 16:11:00* Test Item Value Reference Range Comments GLUBED (test code=GLUBED) 192 mg/dL 74-106 Performed by certified otr owner operator at [facility] [id number] 11:48:00* Test Item Value Reference Range Comments GLUBED (test code=GLUBED) 194 mg/dL 74-106 Performed by certified otr owner operator at [facility] - XR CHEST 2 [id number] 08:54:00 FAX: Kade De La Garza MD [place]: [address] St: ADM FAX: Nan Swan NP [phone] Name: FLEXDIANA Pooja [facility] : 1965 Age/S: 53/F [address] Unit #: [id number] Loc: V.[address] [place] [address] Phys: Nan Swan NP Acct: [id number] Dis Date: Status: ADM IN PHONE #: [phone] Exam Date: 04/13/2019 0843 FAX #: [phone] Reason: pneumonia EXAMS: CPT CODE: [id number] XR CHEST 2 V 87018 HISTORY: Pneumonia. COMPARISON: April 12, 2019. AP and lateral view of the chest: No acute infiltrates, effusion or congestion. Cardiomegaly. DJD of the dorsal spine. IMPRESSION: No acute infiltrates, effusion or congestion. at 0854 Reported and signed by: Orlando Babin M.D. CC: Kade Thornton; Nan Swan NP Technologist: Haleigh AGUSTIN(Adrianne) Trnscrd Date/Time/By: 04/13/2019 (0854) : By: [email or web address] Orig Print D/T: S: 04/13/2019 (0857) PAGE 1 Signed Report [id number] 07:41:00* Test Item Value Reference Range Comments GLUBED (test code=GLUBED) 146 mg/dL 74-106 Performed by certified otr owner operator at [facility] BASIC METABOLIC [id number] 06:03:00* Test Item Value Reference Range Comments SODIUM (test code=NA) 138 mmol/L 136-145 POTASSIUM (test code=K) 3.3 mmol/L 3.5-5.1 CHLORIDE (test code=CL) 102.0 mmol/L 98-107 CARBON DIOXIDE (test code=CO2) 30.0 mmol/L 21-32 ANION GAP (test code=GAP) 9.3 10-20 GLUCOSE (test code=GLU) 141 mg/dL 74-106 BLOOD UREA NITROGEN (test code=BUN) 21 mg/dL 7-18 GLOMERULAR FILTRATION RATE (test code=GFR) > 60 mL/min >=60 Estimated GFR by using Modified MDRD formula.Chronic kidney disease is defined as either kidney damageor GFR <60 mL/min/1.73 m2 for >3 months. CREATININE (test code=CREAT) 0.70 mg/dL 0.55-1.02 Note change in reference range due to change in reagent. BUN/CREATININE RATIO (test code=BUN/CREA) 30.0 10-20 CALCIUM (test code=CA) 8.6 mg/dL 8.5-10.1 BASIC METABOLIC [id number] 05:55:00* Test Item Value Reference Range Comments SODIUM (test code=NA) 138 mmol/L 136-145 POTASSIUM (test code=K) 3.3 mmol/L 3.5-5.1 CHLORIDE (test code=CL) 102.0 mmol/L 98-107 CARBON DIOXIDE (test code=CO2) mmol/L 21-32 ANION GAP (test code=GAP) 10-20 GLUCOSE (test code=GLU) mg/dL 74-106 BLOOD UREA NITROGEN (test code=BUN) mg/dL 7-18 GLOMERULAR FILTRATION RATE (test code=GFR) mL/min >=60 CREATININE (test code=CREAT) mg/dL 0.55-1.02 BUN/CREATININE RATIO (test code=BUN/CREA) 10-20 CALCIUM (test code=CA) mg/dL 8.5-10.1 CBC W/AUTO [id number] 05:38:00* Test Item Value Reference Range Comments WHITE BLOOD CELL (test code=WBC) 7.0 K/mm3 4.5-12.5 RED BLOOD CELL (test code=RBC) 4.09 mill/mm3 3.7-5.2 HEMOGLOBIN (test code=HGB) 12.0 gram/dL 11.5-15.5 HEMATOCRIT (test code=HCT) 34.1 % 36.0-46.0 MEAN CELL VOLUME (test code=MCV) 83.4 fL 80-98 MEAN CELL HGB (test code=MCH) 29.3 picogram 27.0-33.0 MEAN CELL HGB CONCETRATION (test code=MCHC) 35.2 gram/dL 33.0-36.0 RED CELL DISTRIBUTION WIDTH (test code=RDW) 12.3 % 11.6-16.2 RED CELL DISTRIBUTION WIDTH SD (test code=RDW-SD) 37.2 fL 37.0-51.0 PLATELET COUNT (test code=PLT) 191 K/mm3 150-450 MEAN PLATELET VOLUME (test code=MPV) 11.2 fL 6.7-11.0 NEUTROPHIL % (test code=NT%) 51.3 % 39.0-69.0 IMMATURE GRANULOCYTE % (test code=IG%) 0.7 % 0.0-5.0 LYMPHOCYTE % (test code=LY%) 34.4 % 25.0-55.0 MONOCYTE % (test code=MO%) 9.4 % 0.0-10.0 EOSINOPHIL % (test code=EO%) 3.8 % 0.0-5.0 BASOPHIL % (test code=BA%) 0.4 % 0.0-1.0 NUCLEATED RBC % (test code=NRBC%) 0.0 % 0-0 NEUTROPHIL # (test code=NT#) 3.60 K/mm3 1.8-7.7 IMMATURE GRANULOCYTE # (test code=IG#) 0.05 x10 3/uL 0-0.03 LYMPHOCYTE # (test code=LY#) 2.42 K/mm3 1.0-5.0 MONOCYTE # (test code=MO#) 0.66 K/mm3 0-0.8 EOSINOPHIL # (test code=EO#) 0.27 K/mm3 0.0-0.5 BASOPHIL # (test code=BA#) 0.03 K/mm3 0.0-0.2 NUCLEATED RBC # (test code=NRBC#) 0.00 K/mm3 0.0-0.1 MANUAL DIFF REQUIRED (test code=MDIFF) NO [id number] 20:40:00* Test Item Value Reference Range Comments GLUBED (test code=GLUBED) 214 mg/dL 74-106 Performed by certified otr owner operator at [facility] [id number] 16:30:00* Test Item Value Reference Range Comments GLUBED (test code=GLUBED) 247 mg/dL 74-106 Performed by certified otr owner operator at [facility] [id number] 11:44:00* Test Item Value Reference Range Comments GLUBED (test code=GLUBED) 213 mg/dL 74-106 Performed by certified otr owner operator at [facility] [id number] 11:22:00* Test Item Value Reference Range Comments TROPONIN-I (test code=TROPI) 0.015 ng/mL 0-0.045 COMMENTS TO TARIFF SUPERVISOR: COLLECT 3 HOURS AFTER PREVIOUS [id number] 09:18:00* Test Item Value Reference Range Comments GLUBED (test code=GLUBED) 237 mg/dL 74-106 Performed by certified otr owner operator at [facility] [id number] 08:21:00* Test Item Value Reference Range Comments TROPONIN-I (test code=TROPI) 0.018 ng/mL 0-0.045 COMMENTS TO TARIFF SUPERVISOR: COLLECT 3 HOURS AFTER PREVIOUS SAMPLEB-TYPE NATRIURETIC [id number] 02:14:00* Test Item Value Reference Range Comments B-TYPE NATRIURETIC PEPTIDE (test code=BNP) 61.84 pgram/mL 0-100 - XR CHEST 2 [id number] 01:46:00 [place]: St: REG Name: DIANA SHELDON [facility] : [birth year] Age/S: 53/F [address] [facility] Unit #: [id number] Loc: [place] [address] Phys: Ellie Jolly MD Acct: [id number] Dis Date: Status: REG ER PHONE #: [phone] Exam Date: 04/12/2019 0131 FAX #: [phone] Reason: CHEST PAIN EXAMS: CPT CODE: [id number] XR CHEST 2 V 52899 EXAM: Chest 2 views. Location: R16 HISTORY: Chest pain, COMPARISON: 03/04 FINDINGS: PA and lateral views of the chest were obtained. Minimal airspace opacities are noted in the left l ower lobe.. There are no pleural effusions or pneumothorax. The cardiac silhouette is normal in size and contour. Ao rta, pulmonary vasculature and mediastinum are normal. Visualized skeletal structures are within normal limits. IMPRESSION: 1. Mild left lower lobe atelectasis/consolidation. 2. Mild cardiomegaly. at 0146 Reported and signed by: Wilder Alberto CC: Tech nologist: Gabby Delaney Trnmnrd Date/Ti me/By: 04/12/2019 (0146) : By: [email or web address] Orig Print D/T: S: 04/12/2019 (0149) PAGE 1 Signed Report BASIC METABOLIC [id number] 01:37:00* Test Item Value Reference Range Comments SODIUM (test code=NA) 136 mmol/L 136-145 POTASSIUM (test code=K) 3.0 mmol/L 3.5-5.1 CHLORIDE (test code=CL) 101.0 mmol/L 98-107 CARBON DIOXIDE (test code=CO2) 29.0 mmol/L 21-32 ANION GAP (test code=GAP) 9.0 10-20 GLUCOSE (test code=GLU) 138 mg/dL 74-106 BLOOD UREA NITROGEN (test code=BUN) 21 mg/dL 7-18 GLOMERULAR FILTRATION RATE (test code=GFR) > 60 mL/min >=60 Estimated GFR by using Modified MDRD formula.Chronic kidney disease is defined as either kidney damageor GFR <60 mL/min/1.73 m2 for >3 months. CREATININE (test code=CREAT) 0.90 mg/dL 0.55-1.02 Note change in reference range due to change in reagent. BUN/CREATININE RATIO (test code=BUN/CREA) 23.3 10-20 CALCIUM (test code=CA) 8.8 mg/dL 8.5-10.1 HEPATIC FUNCTION [id number] 01:37:00* Test Item Value Reference Range Comments TOTAL PROTEIN (test code=PROT) 7.8 gram/dL 6.4-8.2 ALBUMIN (test code=ALB) 3.7 g/dL 3.4-5.0 GLOBULIN (test code=GLOB) 4.1 gram/dL 2.7-4.2 ALBUMIN/GLOBULIN RATIO (test code=A/G) 0.9 0.75-1.50 BILIRUBIN TOTAL (test code=BILT) 0.40 mg/dL 0.0-1.0 BILIRUBIN DIRECT (test code=BILD) 0.12 mg/dL 0.0-0.20 SGOT/AST (test code=AST) 20 IUnit/L 15-37 SGPT/ALT (test code=ALT) 25 IUnit/L 12-78 ALKALINE PHOSPHATASE TOTAL (test code=ALKP) 111 IUnit/L 45-117 Note change in reference range due to change in reagent. [id number] 01:37:00* Test Item Value Reference Range Comments LIPASE (test code=LIP) 123 U/L 73.0-393.0 [id number] 01:37:00* Test Item Value Reference Range Comments TROPONIN-I (test code=TROPI) <0.015 ng/mL 0-0.045 URINALYSIS [id number] 01:33:00* Test Item Value Reference Range Comments UA COLOR (test code=COLU) Light-Yellow YELLOW UA APPEARANCE (test code=APPU) CLEAR CLEAR UA GLUCOSE DIPSTICK (test code=DGLUU) NEGATIVE mg/dL NEGATIVE UA BILIRUBIN DIPSTICK (test code=BILU) NEGATIVE mg/dL NEGATIVE UA KETONE DIPSTICK (test code=KETU) NEGATIVE mg/dL NEGATIVE UA SPECIFIC GRAVITY (test code=SGU) 1.010 1.001-1.035 UA BLOOD DIPSTICK (test code=SALOME) Negative mg/dL NEGATIVE UA PH DIPSTICK (test code=KYLAH) 6.5 5.0-8.0 UA PROTEIN DIPSTICK (test code=PROU) NEGATIVE mg/dL NEGATIVE UA UROBILINIOGEN DIPSTICK (test code=URO) Normal mg/dL NEGATIVE UA NITRITE DIPSTICK (test code=SARABJIT) NEGATIVE NEGATIVE UA LEUKOCYTE ESTERASE W REFLEX (test code=LEUUR) NEGATIVE Martinez/uL NEGATIVE UA WBC (test code=WBCU) NONE SEEN per HPF 0-5 UA RBC (test code=RBCU) NONE SEEN per HPF 0-5 UA EPITHELIAL CELLS (test code=EPIU) Few (2-5/hpf) per HPF Few UA BACTERIA (test code=BACU) NONE SEEN per HPF NONE Urine Source? Clean CatchDRUGS OF ABUSE SCREEN [id number] 01:33:00* Test Item Value Reference Range Comments URN COCAINE (test code=COCAURN) NEGATIVE <300 ng/mL URN CANNABINOIDS (test code=CANNABURN) NEGATIVE <50 ng/mL URN AMPHETAMINE (test code=AMPHETURN) NEGATIVE <1000 ng/mL URN BARBITURATE (test code=BARBITURN) NEGATIVE <200 ng/mL URN BENZODIAZEPINE (test code=BENZOURN) NEGATIVE <200 ng/mL URN OPIATES (test code=OPIATURN) NEGATIVE <300 ng/mL URN PHENCYCLIDINE (PCP) (test code=PHENCURN) NEGATIVE <25 ng/mL URN METHADONE (test code=METHAURN) NEGATIVE <300 ng/mL Urine Source? Clean CatchURINALYSIS [id number] 01:31:00* Test Item Value Reference Range Comments UA COLOR (test code=COLU) Light-Yellow YELLOW UA APPEARANCE (test code=APPU) CLEAR CLEAR UA GLUCOSE DIPSTICK (test code=DGLUU) NEGATIVE mg/dL NEGATIVE UA BILIRUBIN DIPSTICK (test code=BILU) NEGATIVE mg/dL NEGATIVE UA KETONE DIPSTICK (test code=KETU) NEGATIVE mg/dL NEGATIVE UA SPECIFIC GRAVITY (test code=SGU) 1.010 1.001-1.035 UA BLOOD DIPSTICK (test code=SALOME) Negative mg/dL NEGATIVE UA PH DIPSTICK (test code=KYLAH) 6.5 5.0-8.0 UA PROTEIN DIPSTICK (test code=PROU) NEGATIVE mg/dL NEGATIVE UA UROBILINIOGEN DIPSTICK (test code=URO) Normal mg/dL NEGATIVE UA NITRITE DIPSTICK (test code=SARABJIT) NEGATIVE NEGATIVE UA LEUKOCYTE ESTERASE W REFLEX (test code=LEUUR) NEGATIVE Martinez/uL NEGATIVE UA WBC (test code=WBCU) NONE SEEN per HPF 0-5 UA RBC (test code=RBCU) NONE SEEN per HPF 0-5 UA EPITHELIAL CELLS (test code=EPIU) Few (2-5/hpf) per HPF Few UA BACTERIA (test code=BACU) NONE SEEN per HPF NONE Urine Source? Clean CatchDRUGS OF ABUSE SCREEN [id number] 01:31:00* Test Item Value Reference Range Comments URN COCAINE (test code=COCAURN) <300 ng/mL URN CANNABINOIDS (test code=CANNABURN) <50 ng/mL URN AMPHETAMINE (test code=AMPHETURN) <1000 ng/mL URN BARBITURATE (test code=BARBITURN) <200 ng/mL URN BENZODIAZEPINE (test code=BENZOURN) <200 ng/mL URN OPIATES (test code=OPIATURN) <300 ng/mL URN PHENCYCLIDINE (PCP) (test code=PHENCURN) <25 ng/mL URN METHADONE (test code=METHAURN) <300 ng/mL Urine Source? Clean CatchBASIC METABOLIC [id number] 01:26:00* Test Item Value Reference Range Comments SODIUM (test code=NA) 136 mmol/L 136-145 POTASSIUM (test code=K) 3.0 mmol/L 3.5-5.1 CHLORIDE (test code=CL) 101.0 mmol/L 98-107 CARBON DIOXIDE (test code=CO2) mmol/L 21-32 ANION GAP (test code=GAP) 10-20 GLUCOSE (test code=GLU) mg/dL 74-106 BLOOD UREA NITROGEN (test code=BUN) mg/dL 7-18 GLOMERULAR FILTRATION RATE (test code=GFR) mL/min >=60 CREATININE (test code=CREAT) mg/dL 0.55-1.02 BUN/CREATININE RATIO (test code=BUN/CREA) 10-20 CALCIUM (test code=CA) mg/dL 8.5-10.1 HEPATIC FUNCTION [id number] 01:26:00* Test Item Value Reference Range Comments TOTAL PROTEIN (test code=PROT) gram/dL 6.4-8.2 ALBUMIN (test code=ALB) g/dL 3.4-5.0 GLOBULIN (test code=GLOB) gram/dL 2.7-4.2 ALBUMIN/GLOBULIN RATIO (test code=A/G) 0.75-1.50 BILIRUBIN TOTAL (test code=BILT) mg/dL 0.0-1.0 BILIRUBIN DIRECT (test code=BILD) mg/dL 0.0-0.20 SGOT/AST (test code=AST) IUnit/L 15-37 SGPT/ALT (test code=ALT) IUnit/L 12-78 ALKALINE PHOSPHATASE TOTAL (test code=ALKP) IUnit/L 45-117 [id number] 01:26:00* Test Item Value Reference Range Comments LIPASE (test code=LIP) U/L 73.0-393.0 [id number] 01:26:00* Test Item Value Reference Range Comments TROPONIN-I (test code=TROPI) ng/mL 0-0.045 CBC W/O [id number] 01:25:00* Test Item Value Reference Range Comments WHITE BLOOD CELL (test code=WBC) 8.7 K/mm3 4.5-12.5 RED BLOOD CELL (test code=RBC) 4.45 mill/mm3 3.7-5.2 HEMOGLOBIN (test code=HGB) 12.9 gram/dL 11.5-15.5 HEMATOCRIT (test code=HCT) 36.0 % 36.0-46.0 MEAN CELL VOLUME (test code=MCV) 80.9 fL 80-98 MEAN CELL HGB (test code=MCH) 29.0 picogram 27.0-33.0 MEAN CELL HGB CONCETRATION (test code=MCHC) 35.8 gram/dL 33.0-36.0 RED CELL DISTRIBUTION WIDTH (test code=RDW) 12.2 % 11.6-16.2 PLATELET COUNT (test code=PLT) 220 K/mm3 150-450 MEAN PLATELET VOLUME (test code=MPV) 11.0 fL 6.7-11.0 URINALYSIS [id number] 01:20:00* Test Item Value Reference Range Comments UA COLOR (test code=COLU) Light-Yellow YELLOW UA APPEARANCE (test code=APPU) CLEAR CLEAR UA GLUCOSE DIPSTICK (test code=DGLUU) NEGATIVE mg/dL NEGATIVE UA BILIRUBIN DIPSTICK (test code=BILU) NEGATIVE mg/dL NEGATIVE UA KETONE DIPSTICK (test code=KETU) NEGATIVE mg/dL NEGATIVE UA SPECIFIC GRAVITY (test code=SGU) 1.010 1.001-1.035 UA BLOOD DIPSTICK (test code=SALOME) Negative mg/dL NEGATIVE UA PH DIPSTICK (test code=KYLAH) 6.5 5.0-8.0 UA PROTEIN DIPSTICK (test code=PROU) NEGATIVE mg/dL NEGATIVE UA UROBILINIOGEN DIPSTICK (test code=URO) Normal mg/dL NEGATIVE UA NITRITE DIPSTICK (test code=SARABJIT) NEGATIVE NEGATIVE UA LEUKOCYTE ESTERASE W REFLEX (test code=LEUUR) NEGATIVE Martinez/uL NEGATIVE UA WBC (test code=WBCU) per HPF 0-5 UA RBC (test code=RBCU) per HPF 0-5 UA EPITHELIAL CELLS (test code=EPIU) per HPF Few UA BACTERIA (test code=BACU) per HPF NONE Urine Source? Clean CatchDRUGS OF ABUSE SCREEN [id number] 01:20:00* Test Item Value Reference Range Comments URN COCAINE (test code=COCAURN) <300 ng/mL URN CANNABINOIDS (test code=CANNABURN) <50 ng/mL URN AMPHETAMINE (test code=AMPHETURN) <1000 ng/mL URN BARBITURATE (test code=BARBITURN) <200 ng/mL URN BENZODIAZEPINE (test code=BENZOURN) <200 ng/mL URN OPIATES (test code=OPIATURN) <300 ng/mL URN PHENCYCLIDINE (PCP) (test code=PHENCURN) <25 ng/mL URN METHADONE (test code=METHAURN) <300 ng/mL Urine Source? Clean [id number] 12:53:00* Test Item Value Reference Range Comments GLUBED (test code=GLUBED) 215 mg/dL 74-106 Performed by certified otr owner operator at [facility] [id number] 12:53:00* Test Item Value Reference Range Comments GLUBED (test code=GLUBED) 191 mg/dL 74-106 Performed by certified otr owner operator at [facility] [id number] 12:53:00* Test Item Value Reference Range Comments GLUBED (test code=GLUBED) 280 mg/dL 74-106 Performed by certified otr owner operator at [facility] [id number] 12:53:00* Test Item Value Reference Range Comments GLUBED (test code=GLUBED) 130 mg/dL 74-106 Performed by certified otr owner operator at [facility] [id number] 12:53:00* Test Item Value Reference Range Comments GLUBED (test code=GLUBED) 276 mg/dL 74-106 Performed by certified otr owner operator at [facility] [id number] 16:14:00* Test Item Value Reference Range Comments GLUBED (test code=GLUBED) 126 mg/dL 74-106 Performed by certified otr owner operator at [facility] [id number] 05:27:00* Test Item Value Reference Range Comments GLUBED (test code=GLUBED) 154 mg/dL 74-106 Performed by certified otr owner operator at [facility] [id number] 00:09:00* Test Item Value Reference Range Comments GLUBED (test code=GLUBED) 169 mg/dL 74-106 Performed by certified otr owner operator at [facility] [id number] 21:11:00* Test Item Value Reference Range Comments GLUBED (test code=GLUBED) 180 mg/dL 74-106 Performed by certified otr owner operator at [facility] LIPID PROFILE (CORONARY RISK)2019-03-05 13:18:00* Test Item Value Reference Range Comments TRIGLYCERIDES (test code=TRIG) 213 mg/dL 20-150 CHOLESTEROL (test code=CHOL) 169 mg/dL 0-200 CHOLESTEROL/HDL RATIO (test code=CHOLHDL) 5.0 RATIO 0-4.9 RISK ASSOCIATED WITH CHOL/HDL RATIOS: Risk Male Female1/2 AVERAGE 3.43 3.27AVERAGE 4.97 4.442X AVERAGE 9.55 7.053X AVERAGE 23.39 11.04 REFERENCE VALUE IS RELATED TO RISK LEVELS ASRECOMMENDED BY THE [facility]. HEART, LUNG, AND BLOOD INST. HDL CHOLESTEROL (test code=HDL) 31 mg/dL 40-60 LIPOPROTEIN LDL (test code=LDL) 103 mg/dL 100-129 RN PERSONNEL, CONTACT PHYSICIAN IMMEDIATELY IF THIS IS A STROKE, AMI OR CAROTID STENOSIS PATIENT WHEN THE LDL >100 (1ST OCCURENCE, THIS ADMISSION) Reference Interval: mg/dL mmol/L Optimal <100 <2.6Near/above optimal 100-129 2.6- 3.3Borderline High 130-159 3.4-4.1High 160-189 4.1-4.9Very High >=190 >=4.9=========This LDL result is a direct measurement.========= [id number] 01:37:00* Test Item Value Reference Range Comments TROPONIN-I (test code=TROPI) <0.015 ng/mL 0-0.045 COMMENTS TO TARIFF SUPERVISOR: COLLECT 3 HOURS AFTER PREVIOUS [id number] 22:45:00* Test Item Value Reference Range Comments TROPONIN-I (test code=TROPI) <0.015 ng/mL 0-0.045 COMMENTS TO TARIFF SUPERVISOR: COLLECT 3 HOURS AFTER PREVIOUS SAMPLEURINALYSIS [id number] 22:01:00* Test Item Value Reference Range Comments UA COLOR (test code=COLU) DARK YELLOW YELLOW UA APPEARANCE (test code=APPU) SLIGHTLY CLOUDY CLEAR UA GLUCOSE DIPSTICK (test code=DGLUU) NEGATIVE mg/dL NEGATIVE UA BILIRUBIN DIPSTICK (test code=BILU) NEGATIVE mg/dL NEGATIVE UA KETONE DIPSTICK (test code=KETU) NEGATIVE mg/dL NEGATIVE UA SPECIFIC GRAVITY (test code=SGU) 1.019 1.001-1.035 UA BLOOD DIPSTICK (test code=SALOME) Negative mg/dL NEGATIVE UA PH DIPSTICK (test code=KYLAH) 5.0 5.0-8.0 UA PROTEIN DIPSTICK (test code=PROU) NEGATIVE mg/dL NEGATIVE UA UROBILINIOGEN DIPSTICK (test code=URO) NEGATIVE mg/dL NEGATIVE UA NITRITE DIPSTICK (test code=SARABJIT) NEGATIVE NEGATIVE UA LEUKOCYTE ESTERASE W REFLEX (test code=LEUUR) TRACE Martinez/uL NEGATIVE UA WBC (test code=WBCU) 0-5 per HPF 0-5 UA RBC (test code=RBCU) 0-2 #/HPF 0-5 UA EPITHELIAL CELLS (test code=EPIU) MOD per HPF FEW UA BACTERIA (test code=BACU) FEW #/HPF NONE UA MUCUS (test code=MUCU) FEW #/LPF FEW Urine Source? Clean CatchDRUGS OF ABUSE SCREEN [id number] 22:01:00* Test Item Value Reference Range Comments URN COCAINE (test code=COCAURN) NEGATIVE <300 ng/mL URN CANNABINOIDS (test code=CANNABURN) NEGATIVE <50 ng/mL URN AMPHETAMINE (test code=AMPHETURN) NEGATIVE <1000 ng/mL URN BARBITURATE (test code=BARBITURN) NEGATIVE <200 ng/mL URN BENZODIAZEPINE (test code=BENZOURN) NEGATIVE <200 ng/mL URN OPIATES (test code=OPIATURN) NEGATIVE <300 ng/mL URN PHENCYCLIDINE (PCP) (test code=PHENCURN) NEGATIVE <25 ng/mL URN METHADONE (test code=METHAURN) NEGATIVE <300 ng/mL Urine Source? Clean CatchURINALYSIS [id number] 21:33:00* Test Item Value Reference Range Comments UA COLOR (test code=COLU) DARK YELLOW YELLOW UA APPEARANCE (test code=APPU) SLIGHTLY CLOUDY CLEAR UA GLUCOSE DIPSTICK (test code=DGLUU) NEGATIVE mg/dL NEGATIVE UA BILIRUBIN DIPSTICK (test code=BILU) NEGATIVE mg/dL NEGATIVE UA KETONE DIPSTICK (test code=KETU) NEGATIVE mg/dL NEGATIVE UA SPECIFIC GRAVITY (test code=SGU) 1.019 1.001-1.035 UA BLOOD DIPSTICK (test code=SALOME) Negative mg/dL NEGATIVE UA PH DIPSTICK (test code=KYLAH) 5.0 5.0-8.0 UA PROTEIN DIPSTICK (test code=PROU) NEGATIVE mg/dL NEGATIVE UA UROBILINIOGEN DIPSTICK (test code=URO) NEGATIVE mg/dL NEGATIVE UA NITRITE DIPSTICK (test code=SARABJIT) NEGATIVE NEGATIVE UA LEUKOCYTE ESTERASE W REFLEX (test code=LEUUR) TRACE Martinez/uL NEGATIVE UA WBC (test code=WBCU) 0-5 per HPF 0-5 UA RBC (test code=RBCU) 0-2 #/HPF 0-5 UA EPITHELIAL CELLS (test code=EPIU) MOD per HPF FEW UA BACTERIA (test code=BACU) FEW #/HPF NONE UA MUCUS (test code=MUCU) FEW #/LPF FEW Urine Source? Clean CatchDRUGS OF ABUSE SCREEN [id number] 21:33:00* Test Item Value Reference Range Comments URN COCAINE (test code=COCAURN) <300 ng/mL URN CANNABINOIDS (test code=CANNABURN) <50 ng/mL URN AMPHETAMINE (test code=AMPHETURN) <1000 ng/mL URN BARBITURATE (test code=BARBITURN) <200 ng/mL URN BENZODIAZEPINE (test code=BENZOURN) <200 ng/mL URN OPIATES (test code=OPIATURN) <300 ng/mL URN PHENCYCLIDINE (PCP) (test code=PHENCURN) <25 ng/mL URN METHADONE (test code=METHAURN) <300 ng/mL Urine Source? Clean CatchURINALYSIS [id number] 21:18:00* Test Item Value Reference Range Comments UA COLOR (test code=COLU) DARK YELLOW YELLOW UA APPEARANCE (test code=APPU) SLIGHTLY CLOUDY CLEAR UA GLUCOSE DIPSTICK (test code=DGLUU) NEGATIVE mg/dL NEGATIVE UA BILIRUBIN DIPSTICK (test code=BILU) NEGATIVE mg/dL NEGATIVE UA KETONE DIPSTICK (test code=KETU) NEGATIVE mg/dL NEGATIVE UA SPECIFIC GRAVITY (test code=SGU) 1.019 1.001-1.035 UA BLOOD DIPSTICK (test code=SALOME) Negative mg/dL NEGATIVE UA PH DIPSTICK (test code=KYLAH) 5.0 5.0-8.0 UA PROTEIN DIPSTICK (test code=PROU) NEGATIVE mg/dL NEGATIVE UA UROBILINIOGEN DIPSTICK (test code=URO) NEGATIVE mg/dL NEGATIVE UA NITRITE DIPSTICK (test code=SARABJIT) NEGATIVE NEGATIVE UA LEUKOCYTE ESTERASE W REFLEX (test code=LEUUR) TRACE Martinez/uL NEGATIVE UA WBC (test code=WBCU) per HPF 0-5 UA RBC (test code=RBCU) per HPF 0-5 UA EPITHELIAL CELLS (test code=EPIU) per HPF Few UA BACTERIA (test code=BACU) per HPF NONE Urine Source? Clean CatchDRUGS OF ABUSE SCREEN [id number] 21:18:00* Test Item Value Reference Range Comments URN COCAINE (test code=COCAURN) <300 ng/mL URN CANNABINOIDS (test code=CANNABURN) <50 ng/mL URN AMPHETAMINE (test code=AMPHETURN) <1000 ng/mL URN BARBITURATE (test code=BARBITURN) <200 ng/mL URN BENZODIAZEPINE (test code=BENZOURN) <200 ng/mL URN OPIATES (test code=OPIATURN) <300 ng/mL URN PHENCYCLIDINE (PCP) (test code=PHENCURN) <25 ng/mL URN METHADONE (test code=METHAURN) <300 ng/mL Urine Source? Clean CatchB-TYPE NATRIURETIC [id number] 18:09:00* Test Item Value Reference Range Comments B-TYPE NATRIURETIC PEPTIDE (test code=BNP) 60.03 pgram/mL 0-100 BASIC METABOLIC [id number] 17:56:00* Test Item Value Reference Range Comments SODIUM (test code=NA) 135 mmol/L 136-145 POTASSIUM (test code=K) 3.4 mmol/L 3.5-5.1 CHLORIDE (test code=CL) 97.0 mmol/L 98-107 CARBON DIOXIDE (test code=CO2) 29.0 mmol/L 21-32 ANION GAP (test code=GAP) 12.4 10-20 GLUCOSE (test code=GLU) 360 mg/dL 74-106 BLOOD UREA NITROGEN (test code=BUN) 27 mg/dL 7-18 GLOMERULAR FILTRATION RATE (test code=GFR) 43 mL/min >=60 Estimated GFR by using Modified MDRD formula.Chronic kidney disease is defined as either kidney damageor GFR <60 mL/min/1.73 m2 for >3 months. CREATININE (test code=CREAT) 1.30 mg/dL 0.55-1.02 Note change in reference range due to change in reagent. BUN/CREATININE RATIO (test code=BUN/CREA) 20.8 10-20 CALCIUM (test code=CA) 8.6 mg/dL 8.5-10.1 HEPATIC FUNCTION [id number] 17:56:00* Test Item Value Reference Range Comments TOTAL PROTEIN (test code=PROT) 7.7 gram/dL 6.4-8.2 ALBUMIN (test code=ALB) 3.4 g/dL 3.4-5.0 GLOBULIN (test code=GLOB) 4.3 gram/dL 2.7-4.2 ALBUMIN/GLOBULIN RATIO (test code=A/G) 0.8 0.75-1.50 BILIRUBIN TOTAL (test code=BILT) 0.50 mg/dL 0.0-1.0 BILIRUBIN DIRECT (test code=BILD) 0.11 mg/dL 0.0-0.20 SGOT/AST (test code=AST) 19 IUnit/L 15-37 SGPT/ALT (test code=ALT) 30 IUnit/L 12-78 ALKALINE PHOSPHATASE TOTAL (test code=ALKP) 121 IUnit/L 45-117 Note change in reference range due to change in reagent. CREATINE KINASE (CK)2019-03-04 17:56:00* Test Item Value Reference Range Comments CREATINE KINASE (CK) (test code=CK) 37 IUnit/L 26-208 [id number] 17:56:00* Test Item Value Reference Range Comments LIPASE (test code=LIP) 178 U/L 73.0-393.0 [id number] 17:56:00* Test Item Value Reference Range Comments MAGNESIUM (test code=MAG) 1.6 mg/dL 1.8-2.4 HCG SERUM [id number] 17:56:00* Test Item Value Reference Range Comments HCG SERUM QUAL (test code=HCGQL) NEGATIVE NEGATIVE This HCGQL test is NOT applicable for MALE patients.Check with nurse about probable order error.If Tumor Marker Test needed, nurse should order test "HCGTU"(Test #[id number]) [id number] 17:56:00* Test Item Value Reference Range Comments TROPONIN-I (test code=TROPI) 0.020 ng/mL 0-0.045 BASIC METABOLIC [id number] 17:28:00* Test Item Value Reference Range Comments SODIUM (test code=NA) 135 mmol/L 136-145 POTASSIUM (test code=K) 3.4 mmol/L 3.5-5.1 CHLORIDE (test code=CL) 97.0 mmol/L 98-107 CARBON DIOXIDE (test code=CO2) 29.0 mmol/L 21-32 ANION GAP (test code=GAP) 12.4 10-20 GLUCOSE (test code=GLU) 360 mg/dL 74-106 BLOOD UREA NITROGEN (test code=BUN) 27 mg/dL 7-18 GLOMERULAR FILTRATION RATE (test code=GFR) 43 mL/min >=60 Estimated GFR by using Modified MDRD formula.Chronic kidney disease is defined as either kidney damageor GFR <60 mL/min/1.73 m2 for >3 months. CREATININE (test code=CREAT) 1.30 mg/dL 0.55-1.02 Note change in reference range due to change in reagent. BUN/CREATININE RATIO (test code=BUN/CREA) 20.8 10-20 CALCIUM (test code=CA) 8.6 mg/dL 8.5-10.1 HEPATIC FUNCTION [id number] 17:28:00* Test Item Value Reference Range Comments TOTAL PROTEIN (test code=PROT) 7.7 gram/dL 6.4-8.2 ALBUMIN (test code=ALB) 3.4 g/dL 3.4-5.0 GLOBULIN (test code=GLOB) 4.3 gram/dL 2.7-4.2 ALBUMIN/GLOBULIN RATIO (test code=A/G) 0.8 0.75-1.50 BILIRUBIN TOTAL (test code=BILT) 0.50 mg/dL 0.0-1.0 BILIRUBIN DIRECT (test code=BILD) 0.11 mg/dL 0.0-0.20 SGOT/AST (test code=AST) 19 IUnit/L 15-37 SGPT/ALT (test code=ALT) 30 IUnit/L 12-78 ALKALINE PHOSPHATASE TOTAL (test code=ALKP) 121 IUnit/L 45-117 Note change in reference range due to change in reagent. CREATINE KINASE (CK)2019-03-04 17:28:00* Test Item Value Reference Range Comments CREATINE KINASE (CK) (test code=CK) 37 IUnit/L 26-208 [id number] 17:28:00* Test Item Value Reference Range Comments LIPASE (test code=LIP) 178 U/L 73.0-393.0 [id number] 17:28:00* Test Item Value Reference Range Comments MAGNESIUM (test code=MAG) 1.6 mg/dL 1.8-2.4 HCG SERUM [id number] 17:28:00* Test Item Value Reference Range Comments HCG SERUM QUAL (test code=HCGQL) NEGATIVE [id number] 17:28:00* Test Item Value Reference Range Comments TROPONIN-I (test code=TROPI) 0.020 ng/mL 0-0.045 - XR CHEST 1 [id number] 17:23:00 FAX: Shellie Jean Baptiste [phone] [place]: St: REG Name: DIANA SHELDON [facility] : [birth year] Age/S: 53/F [address] [facility] Unit #: [id number] Loc: P[place]CE [place] [address] Phys: Shellie Metcalf MD Acct: [id number] Dis Date: Status: REG ER PHONE #: [phone] Exam Date: 03/04/2019 1652 FAX #: [phone] Reason: SYNCOPE EXAMS: CPT CODE: [id number] XR CHEST 1 V 10256 EXAM: Chest x-ray, one view; INFORMATION: Syncope, dizziness, blurry vision; IMPRESSION: 1. No evidence of active cardiopulmonary disease. 2. No change compared with a recent study from February 17, 2019; aortic calcifications. at 4343 R eported and signed by: Edgar Lundberg M.D. CC: Shellie Ferrer MD Technologist: Krista Carmona Trnscrd Date/Time/By: 03/04/2019 () : By: AltonGRW Orig Print D/T: S: 03/04/2019 (9421) PAGE 1 Signed Report BASIC METABOLIC [id number] 17:17:00* Test Item Value Reference Range Comments SODIUM (test code=NA) 135 mmol/L 136-145 POTASSIUM (test code=K) 3.4 mmol/L 3.5-5.1 CHLORIDE (test code=CL) 97.0 mmol/L 98-107 CARBON DIOXIDE (test code=CO2) mmol/L 21-32 ANION GAP (test code=GAP) 10-20 GLUCOSE (test code=GLU) mg/dL 74-106 BLOOD UREA NITROGEN (test code=BUN) mg/dL 7-18 GLOMERULAR FILTRATION RATE (test code=GFR) mL/min >=60 CREATININE (test code=CREAT) mg/dL 0.55-1.02 BUN/CREATININE RATIO (test code=BUN/CREA) 10-20 CALCIUM (test code=CA) mg/dL 8.5-10.1 HEPATIC FUNCTION [id number] 17:17:00* Test Item Value Reference Range Comments TOTAL PROTEIN (test code=PROT) gram/dL 6.4-8.2 ALBUMIN (test code=ALB) g/dL 3.4-5.0 GLOBULIN (test code=GLOB) gram/dL 2.7-4.2 ALBUMIN/GLOBULIN RATIO (test code=A/G) 0.75-1.50 BILIRUBIN TOTAL (test code=BILT) mg/dL 0.0-1.0 BILIRUBIN DIRECT (test code=BILD) mg/dL 0.0-0.20 SGOT/AST (test code=AST) IUnit/L 15-37 SGPT/ALT (test code=ALT) IUnit/L 12-78 ALKALINE PHOSPHATASE TOTAL (test code=ALKP) IUnit/L 45-117 CREATINE KINASE (CK)2019-03-04 17:17:00* Test Item Value Reference Range Comments CREATINE KINASE (CK) (test code=CK) IUnit/L 26-208 [id number] 17:17:00* Test Item Value Reference Range Comments LIPASE (test code=LIP) U/L 73.0-393.0 [id number] 17:17:00* Test Item Value Reference Range Comments MAGNESIUM (test code=MAG) mg/dL 1.8-2.4 HCG SERUM [id number] 17:17:00* Test Item Value Reference Range Comments HCG SERUM QUAL (test code=HCGQL) NEGATIVE [id number] 17:17:00* Test Item Value Reference Range Comments TROPONIN-I (test code=TROPI) ng/mL 0-0.045 PROTHROMBIN [id number] 16:58:00* Test Item Value Reference Range Comments PROTHROMBIN TIME PATIENT (test code=PTP) 12.0 seconds 9.0-14.0 INTERNATIONAL NORMAL RATIO (test code=INR) 1.0 0.8-1.2 The therapeutic range for oral anticoagulant therapy formost indications is an international normalized ratio (INR)of between 2.0 and 3.0. The recommended therapeutic INRrange for various clinical situations is listed below: Clinical Situation INR range Pulmonary e mbolism treatment (2.0-3.0)Venous thrombosis treatmentVenous thrombosis prophylaxis (high risk surgery)Prevention of systemic embolism from: Acute myocardial infarction Valvular heart disease Atrial fibrillation Mechanical prosthetic heart valves (2.5-3.5) IS PATIENT ON ANTICOAGULANTS? NTHROMBOPLASTIN TIME [id number] 16:58:00* Test Item Value Reference Range Comments THROMBOPLASTIN TIME PARTIAL (test code=PTT) 26.7 seconds 25.0-36.5 IS PATIENT ON ANTICOAGULANTS? [id number] 16:58:00* Test Item Value Reference Range Comments D-DIMER (test code=DDIMER) 396.00 ng/mLFEU 0-500 Clinical Cut-off value for D- Dimer is 500 ng/mL FEU. Comment: The [employer] D-Dimer assay is intended for use asan aid in the diagnosis of venous thromboembolism (VTE)[deep vein thrombosis (DVT) or pulmonary embolism (PE)].The measurement of D-Dimer should not be used as an aid inthe diagnosis of VTE, in patient with: -Therapeutic dose anticoagulant therapy for >24 hours -Fibrinolytic therapy within previous 7 days -Trauma or surgery within previous 4 weeks -Disseminated malignancies - Aortic aneurysm -Sepsis, severe infections, pneumonia, severe skin infections -Liver cirrhosis - IS PATIENT ON ANTICOAGULANTS? N- CT HEAD/BRAIN W/O [id number] 16:49:00 Name: DIANA MCCORD [facility] : 1965 Age/S: 53 / F [address] Unit #: [id number] Loc: [place] [address] Phys: Jeremiah Metcalf MD Acct: [id number] Di s Date: Status: REG ER PHONE #: Exam Date: 03/04/2019 1646 FAX #: Reason: Syncope EXAMS: CPT CODE: [id number] CT HEAD/BRAIN W/O CONT [id number] EXAM: CT of the head; INFORMATION: Syncope, dizziness, blurry vision; TECHNIQUE AND FINDINGS: CT dose reduction protocol; The ventricles are symmetric and of normal diameter; normal width of basilar cisterns and sulci; normal bingham/white matter differentiation; no evidence of intra or extra-axial hemorrhage, mass lesion or midline shift. Bone windows show no abnormalities. IMPRESSION: Normal CT scan of the head. No change compared with a study from September 01, 2018. at 1649 Reported and signed by: Edgar Lundberg M.D. CC: Shellie Metcalf MD Technologist:Gill Ramirez RT(R)(CT) CTDI: DLP: Trnscb Date/Time: 03/04/2019 (1648) [email or web address] Orig Print D/T: S: 03/04/2019 (1651) CTDI: DLP: PAGE 1 Signed Report CBC W/O DIFF 2019-03-04 16:48:00* Test Item Value Reference Range Comments WHITE BLOOD CELL (test code=WBC) 8.9 K/mm3 4.5-12.5 RED BLOOD CELL (test code=RBC) 4.35 mill/mm3 3.7-5.2 HEMOGLOBIN (test code=HGB) 12.7 gram/dL 11.5-15.5 HEMATOCRIT (test code=HCT) 36.6 % 36.0-46.0 MEAN CELL VOLUME (test code=MCV) 84.1 fL 80-98 MEAN CELL HGB (test code=MCH) 29.2 picogram 27.0-33.0 MEAN CELL HGB CONCETRATION (test code=MCHC) 34.7 gram/dL 33.0-36.0 RED CELL DISTRIBUTION WIDTH (test code=RDW) 11.9 % 11.6-16.2 PLATELET COUNT (test code=PLT) 239 K/mm3 150-450 MEAN PLATELET VOLUME (test code=MPV) 11.4 fL 6.7-11.0 CBC W/O [id number] 16:46:00* Test Item Value Reference Range Comments WHITE BLOOD CELL (test code=WBC) K/mm3 4.5-12.5 RED BLOOD CELL (test code=RBC) mill/mm3 3.7-5.2 HEMOGLOBIN (test code=HGB) 12.7 gram/dL 11.5-15.5 HEMATOCRIT (test code=HCT) 36.6 % 36.0-46.0 MEAN CELL VOLUME (test code=MCV) fL 80-98 MEAN CELL HGB (test code=MCH) picogram 27.0-33.0 MEAN CELL HGB CONCETRATION (test code=MCHC) gram/dL 33.0-36.0 RED CELL DISTRIBUTION WIDTH (test code=RDW) % 11.6-16.2 PLATELET COUNT (test code=PLT) K/mm3 150-450 MEAN PLATELET VOLUME (test code=MPV) fL 6.7-11.0 [id number] 17:13:00* Test Item Value Reference Range Comments D-DIMER (test code=DDIMER) 364.00 ng/mLFEU 0-500 Clinical Cut-off value for D- Dimer is 500 ng/mL FEU. Comment: The [employer] D-Dimer assay is intended for use asan aid in the diagnosis of venous thromboembolism (VTE)[deep vein thrombosis (DVT) or pulmonary embolism (PE)].The measurement of D-Dimer should not be used as an aid inthe diagnosis of VTE, in patient with: -Therapeutic dose anticoagulant therapy for >24 hours -Fibrinolytic therapy within previous 7 days -Trauma or surgery within previous 4 weeks -Disseminated malignancies - Aortic aneurysm -Sepsis, severe infections, pneumonia, severe skin infections -Liver cirrhosis - BASIC METABOLIC [id number] 17:04:00* Test Item Value Reference Range Comments SODIUM (test code=NA) 135 mmol/L 136-145 POTASSIUM (test code=K) 3.6 mmol/L 3.5-5.1 CHLORIDE (test code=CL) 99.0 mmol/L 98-107 CARBON DIOXIDE (test code=CO2) 29.0 mmol/L 21-32 ANION GAP (test code=GAP) 10.6 10-20 GLUCOSE (test code=GLU) 257 mg/dL 74-106 BLOOD UREA NITROGEN (test code=BUN) 22 mg/dL 7-18 GLOMERULAR FILTRATION RATE (test code=GFR) > 60 mL/min >=60 Estimated GFR by using Modified MDRD formula.Chronic kidney disease is defined as either kidney damageor GFR <60 mL/min/1.73 m2 for >3 months. CREATININE (test code=CREAT) 0.70 mg/dL 0.55-1.02 Note change in reference range due to change in reagent. BUN/CREATININE RATIO (test code=BUN/CREA) 31.4 10-20 CALCIUM (test code=CA) 9.3 mg/dL 8.5-10.1 [id number] 17:04:00* Test Item Value Reference Range Comments TROPONIN-I (test code=TROPI) 0.035 ng/mL 0-0.045 BASIC METABOLIC [id number] 16:55:00* Test Item Value Reference Range Comments SODIUM (test code=NA) 135 mmol/L 136-145 POTASSIUM (test code=K) 3.6 mmol/L 3.5-5.1 CHLORIDE (test code=CL) 99.0 mmol/L 98-107 CARBON DIOXIDE (test code=CO2) mmol/L 21-32 ANION GAP (test code=GAP) 10-20 GLUCOSE (test code=GLU) mg/dL 74-106 BLOOD UREA NITROGEN (test code=BUN) mg/dL 7-18 GLOMERULAR FILTRATION RATE (test code=GFR) mL/min >=60 CREATININE (test code=CREAT) mg/dL 0.55-1.02 BUN/CREATININE RATIO (test code=BUN/CREA) 10-20 CALCIUM (test code=CA) mg/dL 8.5-10.1 [id number] 16:55:00* Test Item Value Reference Range Comments TROPONIN-I (test code=TROPI) ng/mL 0-0.045 CBC W/O [id number] 16:39:00* Test Item Value Reference Range Comments WHITE BLOOD CELL (test code=WBC) 9.4 K/mm3 4.5-12.5 RED BLOOD CELL (test code=RBC) 5.04 mill/mm3 3.7-5.2 HEMOGLOBIN (test code=HGB) 14.7 gram/dL 11.5-15.5 HEMATOCRIT (test code=HCT) 42.3 % 36.0-46.0 MEAN CELL VOLUME (test code=MCV) 83.9 fL 80-98 MEAN CELL HGB (test code=MCH) 29.2 picogram 27.0-33.0 MEAN CELL HGB CONCETRATION (test code=MCHC) 34.8 gram/dL 33.0-36.0 RED CELL DISTRIBUTION WIDTH (test code=RDW) 12.1 % 11.6-16.2 PLATELET COUNT (test code=PLT) 255 K/mm3 150-450 MEAN PLATELET VOLUME (test code=MPV) 10.8 fL 6.7-11.0 CBC W/O [id number] 16:38:00* Test Item Value Reference Range Comments WHITE BLOOD CELL (test code=WBC) K/mm3 4.5-12.5 RED BLOOD CELL (test code=RBC) mill/mm3 3.7-5.2 HEMOGLOBIN (test code=HGB) 14.7 gram/dL 11.5-15.5 HEMATOCRIT (test code=HCT) 42.3 % 36.0-46.0 MEAN CELL VOLUME (test code=MCV) fL 80-98 MEAN CELL HGB (test code=MCH) picogram 27.0-33.0 MEAN CELL HGB CONCETRATION (test code=MCHC) gram/dL 33.0-36.0 RED CELL DISTRIBUTION WIDTH (test code=RDW) % 11.6-16.2 PLATELET COUNT (test code=PLT) K/mm3 150-450 MEAN PLATELET VOLUME (test code=MPV) fL 6.7-11.0 - XR CHEST 1 [id number] 16:20:00 FAX: Shobha Tapia DO [place]: [address]: PRE Name: DIANA SHELDON [facility] : [birth year] Age/S: 53/F [place] [address] Unit #: [id number] Loc: [place] [address] Phys: Shobha Tapia DO Acct: [id number] Dis Date: Status: PRE ER PHONE #: [phone] Exam Date: 02/19/2019 1555 FAX #: [phone] Reason: CHEST PAIN EXAMS: CPT CODE: [id number] XR CHEST 1 V 81112 REASON FOR EXAM: CHEST PAIN EXAM ORDER DATE: 02/19/2019 3:43 PM Ordering Guillermo: Karoline Tapia DO PROCEDURE: - XR CHEST 1 V ARMAAN RISON: 02/17/2019 FINDINGS: Portable AP frontal view of the chest o btained at 3:54 PM shows clear lungs without evidence of consolidation. Th ere is no evidence of effusion. The heart size is within normal limits. Pulmonary vasculatures are unremarkable. IMPRESSION: No act rosalio disease. at 9210 Reported and signed by: Emil Rodriguez M.D. CC: Shobha Tapia DO Technologist: ACACIA AGUSTIN(R) Trnscrd Date/Time/By: 02/19/2019 (0576) : By: IvethL Orig Print D/T: S: 02/19/2019 (5044) PAGE 1 Signed Report - XR CHEST 1 [id number] 16:40:00 FAX: Michelle Malcolm MSN [place]: [address] St: ADM FAX: Kade De La Garza MD Name: DIANA MCCORD [facility] : 1965 Age/S: 53/F [address] Unit #: [id number] Loc: V.40[address] [place] [address] Phys: Michelle Malcolm MSN Acct: [id number] Dis Date: Status: ADM IN PHONE #: [phone] Exam Date: 02/17/2019 1608 FAX #: [phone] Reason: cough EXAMS: CPT CODE: [id number] XR CHEST 1 V 85931 HISTORY: Pain. COMPARISON: February 08, 2019. SINGLE VIEW CHEST: No acute infiltrates, effusion or congestion is noted. Mild cardiomegaly. IMPRESSION: No acute infiltrates, effusion or congestion. SINGLE VIEW ABDOMEN: No bowel obstruction. Severe constipation. No pathologic calcifications. Phleboliths. Pat ient is post cholecystectomy. IMPRESSION: No bowel obstruction. Severe constipation. at 1640 Reported and sign ed by: Orlando Babin M.D. CC: Michelle Malcolm MSN; Kade Thornton Technologist: Yancy Humphrey RT(R) Trnscrd Date/Time/By: 02/17/2019 (1640) : By: [email or web address] Orig Print D/T: S: 02/17/2019 (1943) PAGE 1 Signed Report - XR ABDOMEN AP 1 [id number] 16:40:00 FAX: Michelle Malcolm [place]: B St: ADM FAX: Kade De La Garza MD Name: DIANA MCCORD [facility] : 1965 Age/S: 53/F [address] Unit #: [id number] Loc: V.40[address] [place] [address] Phys: Michelle Malcolm MSN Acct: [id number] Dis Date: Status: ADM IN PHONE #: [phone] Exam Date: 02/17/2019 1608 FAX #: [phone] Reason: pain EXAMS: CPT CODE: [id number] XR ABDOMEN AP 1 V 03540 HISTORY: Pain. COMPARISON: February 08, 2019. SINGLE VIEW CHEST: No acute infiltrates, effusion or congestion is noted. Mild cardiomegaly. IMPRESSION: No acute infiltrates, effusion or congestion. SINGLE VIEW ABDOMEN: No bowel obstruction. Severe constipation. No pathologic calcifications. Phleboliths. Patient is post cholecystectomy. IMPRESSION: No bowel obstruction. Severe constipation. at 1640 Reported and signed by: Orlando Babin M.D. CC: Michelle Malcolm; Kade Thornton Technologist: Yancy Humphrey RT(R) Trnscrd Date/Time/By: 02/17/2019 (1640) : By: [email or web address] Orig Print D/T: S: 02/17/2019 (5997) PAGE 1 Signed Report [id number] 16:39:00* Test Item Value Reference Range Comments GLUBED (test code=GLUBED) 195 mg/dL 74-106 Performed by certified otr owner operator at [facility] [id number] 12:47:00* Test Item Value Reference Range Comments GLUBED (test code=GLUBED) 158 mg/dL 74-106 Performed by certified otr owner operator at [facility] B-TYPE NATRIURETIC [id number] 09:37:00* Test Item Value Reference Range Comments B-TYPE NATRIURETIC PEPTIDE (test code=BNP) 8.68 pgram/mL 0-100 [id number] 09:01:00* Test Item Value Reference Range Comments GLYCOSYLATED HEMOGLOBIN (HA1C) (test code=GLYHGB) 9.6 % HbA1 4.8-6.0 ESTIMATED AVERAGE GLUCOSE (test code=EAG) 229 MG/DL BASIC METABOLIC [id number] 08:46:00* Test Item Value Reference Range Comments SODIUM (test code=NA) 136 mmol/L 136-145 POTASSIUM (test code=K) 3.3 mmol/L 3.5-5.1 CHLORIDE (test code=CL) 100.0 mmol/L 98-107 CARBON DIOXIDE (test code=CO2) 29.0 mmol/L 21-32 ANION GAP (test code=GAP) 10.3 10-20 GLUCOSE (test code=GLU) 147 mg/dL 74-106 BLOOD UREA NITROGEN (test code=BUN) 21 mg/dL 7-18 GLOMERULAR FILTRATION RATE (test code=GFR) > 60 mL/min >=60 Estimated GFR by using Modified MDRD formula.Chronic kidney disease is defined as either kidney damageor GFR <60 mL/min/1.73 m2 for >3 months. CREATININE (test code=CREAT) 0.70 mg/dL 0.55-1.02 Note change in reference range due to change in reagent. BUN/CREATININE RATIO (test code=BUN/CREA) 30.0 10-20 CALCIUM (test code=CA) 8.9 mg/dL 8.5-10.1 [id number] 08:46:00* Test Item Value Reference Range Comments MAGNESIUM (test code=MAG) 1.8 mg/dL 1.8-2.4 BASIC METABOLIC [id number] 08:35:00* Test Item Value Reference Range Comments SODIUM (test code=NA) 136 mmol/L 136-145 POTASSIUM (test code=K) 3.3 mmol/L 3.5-5.1 CHLORIDE (test code=CL) 100.0 mmol/L 98-107 CARBON DIOXIDE (test code=CO2) mmol/L 21-32 ANION GAP (test code=GAP) 10-20 GLUCOSE (test code=GLU) mg/dL 74-106 BLOOD UREA NITROGEN (test code=BUN) mg/dL 7-18 GLOMERULAR FILTRATION RATE (test code=GFR) mL/min >=60 CREATININE (test code=CREAT) mg/dL 0.55-1.02 BUN/CREATININE RATIO (test code=BUN/CREA) 10-20 CALCIUM (test code=CA) mg/dL 8.5-10.1 [id number] 08:35:00* Test Item Value Reference Range Comments MAGNESIUM (test code=MAG) mg/dL 1.8-2.4 [id number] 08:19:00* Test Item Value Reference Range Comments GLUBED (test code=GLUBED) 144 mg/dL 74-106 Performed by certified otr owner operator at [facility] CBC W/AUTO [id number] 08:18:00* Test Item Value Reference Range Comments WHITE BLOOD CELL (test code=WBC) 7.8 K/mm3 4.5-12.5 RED BLOOD CELL (test code=RBC) 4.33 mill/mm3 3.7-5.2 HEMOGLOBIN (test code=HGB) 12.6 gram/dL 11.5-15.5 HEMATOCRIT (test code=HCT) 36.9 % 36.0-46.0 MEAN CELL VOLUME (test code=MCV) 85.2 fL 80-98 MEAN CELL HGB (test code=MCH) 29.1 picogram 27.0-33.0 MEAN CELL HGB CONCETRATION (test code=MCHC) 34.1 gram/dL 33.0-36.0 RED CELL DISTRIBUTION WIDTH (test code=RDW) 12.2 % 11.6-16.2 RED CELL DISTRIBUTION WIDTH SD (test code=RDW-SD) 37.9 fL 37.0-51.0 PLATELET COUNT (test code=PLT) 220 K/mm3 150-450 MEAN PLATELET VOLUME (test code=MPV) 11.1 fL 6.7-11.0 NEUTROPHIL % (test code=NT%) 48.9 % 39.0-69.0 IMMATURE GRANULOCYTE % (test code=IG%) 0.5 % 0.0-5.0 LYMPHOCYTE % (test code=LY%) 31.2 % 25.0-55.0 MONOCYTE % (test code=MO%) 9.2 % 0.0-10.0 EOSINOPHIL % (test code=EO%) 9.6 % 0.0-5.0 BASOPHIL % (test code=BA%) 0.6 % 0.0-1.0 NUCLEATED RBC % (test code=NRBC%) 0.0 % 0-0 NEUTROPHIL # (test code=NT#) 3.82 K/mm3 1.8-7.7 IMMATURE GRANULOCYTE # (test code=IG#) 0.04 x10 3/uL 0-0.03 LYMPHOCYTE # (test code=LY#) 2.44 K/mm3 1.0-5.0 MONOCYTE # (test code=MO#) 0.72 K/mm3 0-0.8 EOSINOPHIL # (test code=EO#) 0.75 K/mm3 0.0-0.5 BASOPHIL # (test code=BA#) 0.05 K/mm3 0.0-0.2 NUCLEATED RBC # (test code=NRBC#) 0.00 K/mm3 0.0-0.1 MANUAL DIFF REQUIRED (test code=MDIFF) NO [id number] 21:14:00* Test Item Value Reference Range Comments GLUBED (test code=GLUBED) 134 mg/dL 74-106 Performed by certified otr owner operator at [facility] [id number] 20:41:00* Test Item Value Reference Range Comments GLUBED (test code=GLUBED) 179 mg/dL 74-106 Performed by certified otr owner operator at [facility] [id number] 11:56:00* Test Item Value Reference Range Comments GLUBED (test code=GLUBED) 189 mg/dL 74-106 Performed by certified otr owner operator at [facility] [id number] 08:10:00* Test Item Value Reference Range Comments GLUBED (test code=GLUBED) 140 mg/dL 74-106 Performed by certified otr owner operator at [facility] BASIC METABOLIC [id number] 05:01:00* Test Item Value Reference Range Comments SODIUM (test code=NA) 137 mmol/L 136-145 POTASSIUM (test code=K) 3.4 mmol/L 3.5-5.1 CHLORIDE (test code=CL) 101.0 mmol/L 98-107 CARBON DIOXIDE (test code=CO2) 30.0 mmol/L 21-32 ANION GAP (test code=GAP) 9.4 10-20 GLUCOSE (test code=GLU) 170 mg/dL 74-106 BLOOD UREA NITROGEN (test code=BUN) 15 mg/dL 7-18 GLOMERULAR FILTRATION RATE (test code=GFR) > 60 mL/min >=60 Estimated GFR by using Modified MDRD formula.Chronic kidney disease is defined as either kidney damageor GFR <60 mL/min/1.73 m2 for >3 months. CREATININE (test code=CREAT) 0.50 mg/dL 0.55-1.02 Note change in reference range due to change in reagent. BUN/CREATININE RATIO (test code=BUN/CREA) 30.0 10-20 CALCIUM (test code=CA) 8.8 mg/dL 8.5-10.1 [id number] 05:01:00* Test Item Value Reference Range Comments MAGNESIUM (test code=MAG) 1.7 mg/dL 1.8-2.4 BASIC METABOLIC [id number] 04:59:00* Test Item Value Reference Range Comments SODIUM (test code=NA) 137 mmol/L 136-145 POTASSIUM (test code=K) 3.4 mmol/L 3.5-5.1 CHLORIDE (test code=CL) 101.0 mmol/L 98-107 CARBON DIOXIDE (test code=CO2) mmol/L 21-32 ANION GAP (test code=GAP) 10-20 GLUCOSE (test code=GLU) mg/dL 74-106 BLOOD UREA NITROGEN (test code=BUN) mg/dL 7-18 GLOMERULAR FILTRATION RATE (test code=GFR) mL/min >=60 CREATININE (test code=CREAT) mg/dL 0.55-1.02 BUN/CREATININE RATIO (test code=BUN/CREA) 10-20 CALCIUM (test code=CA) mg/dL 8.5-10.1 [id number] 04:59:00* Test Item Value Reference Range Comments MAGNESIUM (test code=MAG) mg/dL 1.8-2.4 [id number] 22:46:00* Test Item Value Reference Range Comments GLUBED (test code=GLUBED) 141 mg/dL 74-106 Performed by certified otr owner operator at [facility] [id number] 15:08:00* Test Item Value Reference Range Comments GLUBED (test code=GLUBED) 212 mg/dL 74-106 Performed by certified otr owner operator at [facility] [id number] 12:27:00* Test Item Value Reference Range Comments GLUBED (test code=GLUBED) 174 mg/dL 74-106 [facility]~ [id number] 10:30:00* Test Item Value Reference Range Comments GLUBED (test code=GLUBED) 103 mg/dL 74-106 [facility] [id number] 10:29:00* Test Item Value Reference Range Comments GLUBED (test code=GLUBED) 179 mg/dL 74-106 Performed by certified otr owner operator at [facility] [id number] 10:29:00* Test Item Value Reference Range Comments GLUBED (test code=GLUBED) 128 mg/dL 74-106 Performed by certified otr owner operator at [facility] [id number] 10:29:00* Test Item Value Reference Range Comments GLUBED (test code=GLUBED) 170 mg/dL 74-106 Performed by certified otr owner operator at [facility] [id number] 09:25:00* Test Item Value Reference Range Comments GLUBED (test code=GLUBED) 128 mg/dL 74-106 Performed by certified otr owner operator at [facility] [id number] 21:10:00* Test Item Value Reference Range Comments GLUBED (test code=GLUBED) 257 mg/dL 74-106 Performed by certified otr owner operator at [facility] [id number] 16:40:00* Test Item Value Reference Range Comments GLUBED (test code=GLUBED) 236 mg/dL 74-106 Performed by certified otr owner operator at [facility] - DUP AB/PEL/SC [id number] 15:51:00 Name: DIANA MCCORD [facility] : 1965 Age/S: 53 / F [address] [facility] Unit #: [id number] Loc: [place] [address] Phys: Kade Thornton MD Acct: [id number] Dis Date: Status: ADM IN PHONE #: [phone] Exam Date: 02/14/2019 1539 FAX #: [phone] Reason: RENAL EXAMS: CPT CODE: [id number] DUP AB/PEL/SC COMP 75983 REASON FOR EXAM: uncontrolled BP EXAM ORDER DATE: 02/14/2019 12:43 PM Attending Guillermo: Sergo Meyers NP PROCEDURE: - US RETRO LTD, - DUP AB/PEL/SC COMP FINDINGS: The right kidney measures 12.9 x 5.4 cm. The cross-sectional thickness of the right renal cortex measured 2.6 cm. The left kidney measures 12.7 x 5.6 cm. The cross-sectional thickness of the left renal cortex measured 1.5 cm. There is no evidence of nephrolithiasis. There is no evidence of renal mass. The urinary bladder is unremarkable. Duplex scans of the upper, mid and inferior pole bilateral renal arteries were performed. Bingham scale images were supplemented with color-flow Doppler. Doppler flow velocity analysis (SPECT or Doppler, duplex Doppler, resistive index) was performed. The resistive index range is within the normal range between 0.5-0.7. The right renal aortic ratio is 0.8. Left renal aortic ratio is 1.2 IMPRESSION: No evidence of renal arterial stenosis. Minimal right hydronephrosis at 1551 Reported and signed by: Emil Rodriguez M.D. CC: Kade Thornton Technologist: NITHYA MCKEON(Adrianne),[facility] Date/Time: 02/14/2019 (1551) [email or web address] Orig Print D/T: S: 02/14/2019 (1499) Probe: PAGE 1 Signed Report - [employer] RETRO [id number] 15:51:00 Name: FLEXDIANA [facility] : 1965 Age/S: 53 / F [address] [facility] Unit #: [id number] Loc: [place] [address] Phys: Michael Meyers NP Acct: [id number] Di s Date: Status: ADM IN PHONE #: Exam Date: 02/14/2019 1532 FAX #: Reason: uncontrolled BP EXAMS: CPT CODE: [id number] [employer] RETRO LTD [id number] REASON FOR EXAM: uncontrolled BP EXAM ORDER DATE: 02/14/2019 12:43 PM Fina diez M.D.: Sergo Meyers NP PROCEDURE: - US RETRO LTD, - DU P AB/PEL/SC COMP FINDINGS: The right kidney measures 12.9 x 5.4 cm . The cross-sectional thickness of the right renal cortex measured 2.6 cm . The left kidney measures 12.7 x 5.6 cm. The cross-sectional thickness of the left renal cortex measured 1.5 cm. There is no evidence of neph rolithiasis. There is no evidence of renal mass. The urinary bladder is unremarkable. Duplex scans of the upper, mid and inferior pole bilateral r enal arteries were performed. Bingham scale images were supplemented with co radha-flow Doppler. Doppler flow velocity analysis (SPECT or Doppler, duple x Doppler, resistive index) was performed. The resistive index range is w ithin the normal range between 0.5-0.7. The right renal aortic ratio is 0 .8. Left renal aortic ratio is 1.2 IMPRESSION: No evidence of r enal arterial stenosis. Minimal right hydronephrosis Electr onically Signed by Guillermo Rodriguez on 02/14/2019 at 1551 Re ported and signed by: Emil Rodriguez M.D. CC: Sergo Meyers NP; Kade Rodriguez Technologist: NITHYA MCKEON(Adrianne),[facility] Date/Time: 02/14/2019 (1551) [email or web address] Orig Print D/T: S: 02/14/2019 (7644) Probe: PAGE 1 Signed Report GLUBED 2019-02-14 12:23:00* Test Item Value Reference Range Comments GLUBED (test code=GLUBED) 200 mg/dL 74-106 Performed by certified otr owner operator at [facility] [id number] 08:34:00* Test Item Value Reference Range Comments GLUBED (test code=GLUBED) 172 mg/dL 74-106 Performed by certified otr owner operator at [facility] BASIC METABOLIC [id number] 06:19:00* Test Item Value Reference Range Comments SODIUM (test code=NA) 138 mmol/L 136-145 POTASSIUM (test code=K) 3.5 mmol/L 3.5-5.1 CHLORIDE (test code=CL) 101.0 mmol/L 98-107 CARBON DIOXIDE (test code=CO2) 30.0 mmol/L 21-32 ANION GAP (test code=GAP) 10.5 10-20 GLUCOSE (test code=GLU) 199 mg/dL 74-106 BLOOD UREA NITROGEN (test code=BUN) 14 mg/dL 7-18 GLOMERULAR FILTRATION RATE (test code=GFR) > 60 mL/min >=60 Estimated GFR by using Modified MDRD formula.Chronic kidney disease is defined as either kidney damageor GFR <60 mL/min/1.73 m2 for >3 months. CREATININE (test code=CREAT) 0.60 mg/dL 0.55-1.02 Note change in reference range due to change in reagent. BUN/CREATININE RATIO (test code=BUN/CREA) 23.3 10-20 CALCIUM (test code=CA) 8.7 mg/dL 8.5-10.1 [id number] 06:19:00* Test Item Value Reference Range Comments MAGNESIUM (test code=MAG) 1.6 mg/dL 1.8-2.4 [id number] 20:21:00* Test Item Value Reference Range Comments GLUBED (test code=GLUBED) 219 mg/dL 74-106 Performed by certified otr owner operator at [facility] [id number] 20:21:00* Test Item Value Reference Range Comments GLUBED (test code=GLUBED) 215 mg/dL 74-106 Performed by certified otr owner operator at [facility] [id number] 12:06:00* Test Item Value Reference Range Comments GLUBED (test code=GLUBED) 162 mg/dL 74-106 Performed by certified otr owner operator at [facility] [id number] 20:59:00* Test Item Value Reference Range Comments GLUBED (test code=GLUBED) 183 mg/dL 74-106 Performed by certified otr owner operator at [facility] [id number] 20:49:00* Test Item Value Reference Range Comments GLUBED (test code=GLUBED) 208 mg/dL 74-106 Performed by certified otr owner operator at [facility] [id number] 13:55:00* Test Item Value Reference Range Comments GLUBED (test code=GLUBED) 146 mg/dL 74-106 Performed by certified otr owner operator at [facility] [id number] 08:52:00* Test Item Value Reference Range Comments GLUBED (test code=GLUBED) 110 mg/dL 74-106 Performed by certified otr owner operator at [facility] BASIC METABOLIC [id number] 05:40:00* Test Item Value Reference Range Comments SODIUM (test code=NA) 139 mmol/L 136-145 POTASSIUM (test code=K) 3.7 mmol/L 3.5-5.1 CHLORIDE (test code=CL) 102.0 mmol/L 98-107 CARBON DIOXIDE (test code=CO2) 31.0 mmol/L 21-32 ANION GAP (test code=GAP) 9.7 10-20 GLUCOSE (test code=GLU) 105 mg/dL 74-106 BLOOD UREA NITROGEN (test code=BUN) 12 mg/dL 7-18 GLOMERULAR FILTRATION RATE (test code=GFR) > 60 mL/min >=60 Estimated GFR by using Modified MDRD formula.Chronic kidney disease is defined as either kidney damageor GFR <60 mL/min/1.73 m2 for >3 months. CREATININE (test code=CREAT) 0.50 mg/dL 0.55-1.02 Note change in reference range due to change in reagent. BUN/CREATININE RATIO (test code=BUN/CREA) 24.0 10-20 CALCIUM (test code=CA) 8.4 mg/dL 8.5-10.1 [id number] 05:40:00* Test Item Value Reference Range Comments MAGNESIUM (test code=MAG) 1.5 mg/dL 1.8-2.4 [id number] 20:55:00* Test Item Value Reference Range Comments GLUBED (test code=GLUBED) 214 mg/dL 74-106 Performed by certified otr owner operator at [facility] [id number] 18:35:00* Test Item Value Reference Range Comments GLUBED (test code=GLUBED) 159 mg/dL 74-106 Performed by certified otr owner operator at [facility] BASIC METABOLIC [id number] 04:45:00* Test Item Value Reference Range Comments SODIUM (test code=NA) 137 mmol/L 136-145 POTASSIUM (test code=K) 3.7 mmol/L 3.5-5.1 CHLORIDE (test code=CL) 102.0 mmol/L 98-107 CARBON DIOXIDE (test code=CO2) 30.0 mmol/L 21-32 ANION GAP (test code=GAP) 8.7 10-20 GLUCOSE (test code=GLU) 134 mg/dL 74-106 BLOOD UREA NITROGEN (test code=BUN) 20 mg/dL 7-18 GLOMERULAR FILTRATION RATE (test code=GFR) > 60 mL/min >=60 Estimated GFR by using Modified MDRD formula.Chronic kidney disease is defined as either kidney damageor GFR <60 mL/min/1.73 m2 for >3 months. CREATININE (test code=CREAT) 0.50 mg/dL 0.55-1.02 Note change in reference range due to change in reagent. BUN/CREATININE RATIO (test code=BUN/CREA) 40.0 10-20 CALCIUM (test code=CA) 8.3 mg/dL 8.5-10.1 [id number] 04:45:00* Test Item Value Reference Range Comments MAGNESIUM (test code=MAG) 1.7 mg/dL 1.8-2.4 [id number] 21:35:00* Test Item Value Reference Range Comments GLUBED (test code=GLUBED) 152 mg/dL 74-106 Performed by certified otr owner operator at [facility] - XR TIBIA/FIBULA 2 V [id number] 15:11:00 FAX: Kade De La Garza MD [place]: B St: ADM FAX: Carlyle Mena [phone] Name: FLEXDIANA M [facility] : 1965 Age/S: 53/F [address] [facility] Unit #: [id number] Loc: V.4030 [place] [address] Phys: Carlyle Nobles FIRER HELPER Acct: [id number] Dis Date: Status: ADM IN PHONE #: [phone] Exam Date: 02/10/2019 1455 FAX #: [phone] Reason: Left leg pain, tender to touch EXAMS: CPT CODE: [id number] XR TIBIA/FIBUL[place] 2 [place] [address] EXAM: Left femur, 4 views, left knee, 2 views and left tibia and fibula, 4 views; INFORMATION: Left leg pain, tender to touch; FINDINGS: Normal shape and structure of the imaged bones; no evidence of fracture or dislocation; no soft tissue abnormalities. IMPRESSION: No evidence of acute osseous trauma or other pathological changes. No radiopaque foreign body. at 1511 Reported and signed by: Edgar Lundberg M.D. CC: Kade Thornton; Carlyle Nobles NP Technologist: Bryce AGUSTIN(R) Trnscrd Date/Time/By: 02/10/2019 (045) : By: AltonGRW Orig Print D/T: S: 02/10/2019 (5652) PAGE 1 Signed Report - XR KNEE 1 OR 2 V LT 2019-02-10 15:11:00 FAX: Kade De La Garza MD [place]: B St: [facility] FAX: Carlyle Mena [phone] Name: DIANA MCCORD [facility]ja [facility] : 1965 Age/S: 53/F [address] [facility] Unit #: [id number] Loc: V.4030 [place] [address] Phys: Carlyle Nobles NP Acct: [id number] Dis Date: Status: ADM IN PHONE #: [phone] Exam Date: 02/10/2019 1455 FAX #: [phone] Reason: Left leg pain, tender to touch EXAMS: CPT CODE: [id number] XR KNEE 1 OR 2 [place] [address] EXAM: Left femur, 4 views, left knee, 2 views and left tibia and fibula, 4 views; INFORMATION: Left leg pain, tender to touch; FINDINGS: Normal shape and structure of the imaged bones; no evidence of fracture or dislocation; no soft tissue abnormalities. IMPRESSION: No evidence of acute osseous trauma or other pathological changes. No radiopaque foreign body. at 2961 Reported and signed by: Edgar Lundberg M.D. CC: Rizwan Thornton Hugh William NP Technologist: Bryce Velázquez RT(R) Trnscmarium Date/Time/By: 02/10/2019 (1511) : By: Efrem Orig Print D/T: S: 02/10/2019 (7204) PAGE 1 Signed Report - XR FEMUR MIN 2 VWS LT 2019-02-10 15:11:00 FAX: Kade De La Garza MD [place]: B St: ADM FAX: Carlyle Mena [phone] Name: DIANA MCCORD [facility] : 1965 Age/S: 53/F [address] [facility] Unit #: [id number] Loc: V.4030 [place] [address] Phys: Carlyle Nobles NP Acct: [id number] Dis Date: Status: ADM IN PHONE #: [phone] Exam Date: 02/10/2019 1455 FAX #: [phone] Reason: Left leg pain, tender to touch EXAMS: CPT CODE: [id number] XR FEMUR MIN [address] [place] [address] EXAM: Left femur, 4 views, left knee, 2 views and left tibia and fibula, 4 views; INFORMATION: Left leg pain, tender to touch; FINDINGS: Normal shape and structure of the imaged bones; no evidence of fracture or dislocation; no soft tissue abnormalities. IMPRESSION: No evidence of acute osseous trauma or other pathological changes. No radiopaque foreign body. at 1511 Reported and signed by: Edgar Lundberg M.D. CC: Rizwan Thornton Hugh William NP Technologist: Bryce Velázquez RT(R) Trnscmarium Date/Time/By: 02/10/2019 (1514) : By: Sammy.GRW Orig Print D/T: S: 02/10/2019 (9020) PAGE 1 Signed Report [id number] 12:02:00 * Test Item Value Reference Range Comments GLUBED (test code=GLUBED) 208 mg/dL 74-106 Performed by certified otr owner operator at [facility] [id number] 07:52:00* Test Item Value Reference Range Comments GLUBED (test code=GLUBED) 144 mg/dL 74-106 Performed by certified otr owner operator at [facility] BASIC METABOLIC [id number] 04:44:00* Test Item Value Reference Range Comments SODIUM (test code=NA) 140 mmol/L 136-145 POTASSIUM (test code=K) 3.3 mmol/L 3.5-5.1 CHLORIDE (test code=CL) 104.0 mmol/L 98-107 CARBON DIOXIDE (test code=CO2) 29.0 mmol/L 21-32 ANION GAP (test code=GAP) 10.3 10-20 GLUCOSE (test code=GLU) 157 mg/dL 74-106 BLOOD UREA NITROGEN (test code=BUN) 22 mg/dL 7-18 GLOMERULAR FILTRATION RATE (test code=GFR) > 60 mL/min >=60 Estimated GFR by using Modified MDRD formula.Chronic kidney disease is defined as either kidney damageor GFR <60 mL/min/1.73 m2 for >3 months. CREATININE (test code=CREAT) 0.60 mg/dL 0.55-1.02 Note change in reference range due to change in reagent. BUN/CREATININE RATIO (test code=BUN/CREA) 36.7 10-20 CALCIUM (test code=CA) 8.5 mg/dL 8.5-10.1 [id number] 04:44:00* Test Item Value Reference Range Comments PHOSPHORUS (test code=PHOS) 4.9 mg/dL 2.5-4.9 [id number] 04:44:00* Test Item Value Reference Range Comments MAGNESIUM (test code=MAG) 1.6 mg/dL 1.8-2.4 BASIC METABOLIC [id number] 04:39:00* Test Item Value Reference Range Comments SODIUM (test code=NA) 140 mmol/L 136-145 POTASSIUM (test code=K) 3.3 mmol/L 3.5-5.1 CHLORIDE (test code=CL) 104.0 mmol/L 98-107 CARBON DIOXIDE (test code=CO2) mmol/L 21-32 ANION GAP (test code=GAP) 10-20 GLUCOSE (test code=GLU) mg/dL 74-106 BLOOD UREA NITROGEN (test code=BUN) mg/dL 7-18 GLOMERULAR FILTRATION RATE (test code=GFR) mL/min >=60 CREATININE (test code=CREAT) mg/dL 0.55-1.02 BUN/CREATININE RATIO (test code=BUN/CREA) 10-20 CALCIUM (test code=CA) mg/dL 8.5-10.1 [id number] 04:39:00* Test Item Value Reference Range Comments PHOSPHORUS (test code=PHOS) mg/dL 2.5-4.9 [id number] 04:39:00* Test Item Value Reference Range Comments MAGNESIUM (test code=MAG) mg/dL 1.8-2.4 CBC W/AUTO [id number] 04:27:00* Test Item Value Reference Range Comments WHITE BLOOD CELL (test code=WBC) 9.8 K/mm3 4.5-12.5 RED BLOOD CELL (test code=RBC) 4.42 mill/mm3 3.7-5.2 HEMOGLOBIN (test code=HGB) 12.9 gram/dL 11.5-15.5 HEMATOCRIT (test code=HCT) 37.7 % 36.0-46.0 MEAN CELL VOLUME (test code=MCV) 85.3 fL 80-98 MEAN CELL HGB (test code=MCH) 29.2 picogram 27.0-33.0 MEAN CELL HGB CONCETRATION (test code=MCHC) 34.2 gram/dL 33.0-36.0 RED CELL DISTRIBUTION WIDTH (test code=RDW) 12.0 % 11.6-16.2 RED CELL DISTRIBUTION WIDTH SD (test code=RDW-SD) 36.9 fL 37.0-51.0 PLATELET COUNT (test code=PLT) 222 K/mm3 150-450 MEAN PLATELET VOLUME (test code=MPV) 11.0 fL 6.7-11.0 NEUTROPHIL % (test code=NT%) 48.4 % 39.0-69.0 IMMATURE GRANULOCYTE % (test code=IG%) 0.3 % 0.0-5.0 LYMPHOCYTE % (test code=LY%) 31.6 % 25.0-55.0 MONOCYTE % (test code=MO%) 8.3 % 0.0-10.0 EOSINOPHIL % (test code=EO%) 10.4 % 0.0-5.0 BASOPHIL % (test code=BA%) 1.0 % 0.0-1.0 NUCLEATED RBC % (test code=NRBC%) 0.0 % 0-0 NEUTROPHIL # (test code=NT#) 4.73 K/mm3 1.8-7.7 IMMATURE GRANULOCYTE # (test code=IG#) 0.03 x10 3/uL 0-0.03 LYMPHOCYTE # (test code=LY#) 3.09 K/mm3 1.0-5.0 MONOCYTE # (test code=MO#) 0.81 K/mm3 0-0.8 EOSINOPHIL # (test code=EO#) 1.02 K/mm3 0.0-0.5 BASOPHIL # (test code=BA#) 0.10 K/mm3 0.0-0.2 NUCLEATED RBC # (test code=NRBC#) 0.00 K/mm3 0.0-0.1 [id number] 21:41:00* Test Item Value Reference Range Comments GLUBED (test code=GLUBED) 269 mg/dL 74-106 Performed by certified otr owner operator at [facility] [id number] 16:48:00* Test Item Value Reference Range Comments GLUBED (test code=GLUBED) 238 mg/dL 74-106 Performed by certified otr owner operator at [facility] [id number] 11:48:00* Test Item Value Reference Range Comments GLUBED (test code=GLUBED) 329 mg/dL 74-106 Performed by certified otr owner operator at [facility] [id number] 08:50:00* Test Item Value Reference Range Comments GLUBED (test code=GLUBED) 169 mg/dL 74-106 Performed by certified otr owner operator at [facility] [id number] 02:51:00* Test Item Value Reference Range Comments TROPONIN-I (test code=TROPI) 0.027 ng/mL 0-0.045 COMMENTS TO TARIFF SUPERVISOR: COLLECT 3 HOURS AFTER PREVIOUS [id number] 00:02:00* Test Item Value Reference Range Comments TROPONIN-I (test code=TROPI) 0.023 ng/mL 0-0.045 COMMENTS TO TARIFF SUPERVISOR: COLLECT 3 HOURS AFTER PREVIOUS SAMPLEURINALYSIS [id number] 16:48:00* Test Item Value Reference Range Comments UA COLOR (test code=COLU) YELLOW YELLOW UA APPEARANCE (test code=APPU) HAZY CLEAR UA GLUCOSE DIPSTICK (test code=DGLUU) NEGATIVE mg/dL NEGATIVE UA BILIRUBIN DIPSTICK (test code=BILU) 1+ (Small 0.5-1.0) NEGATIVE UA KETONE DIPSTICK (test code=KETU) TRACE mg/dL NEGATIVE UA SPECIFIC GRAVITY (test code=SGU) 1.025 1.001-1.035 UA BLOOD DIPSTICK (test code=SALOME) NEGATIVE NEGATIVE UA PH DIPSTICK (test code=KYLAH) 6.0 5.0-8.0 UA PROTEIN DIPSTICK (test code=PROU) 100 (2+) mg/dL Neg-15 UA UROBILINIOGEN DIPSTICK (test code=URO) 1 mg/dL (1+) mg/dL 0.0-0.2 UA NITRITE DIPSTICK (test code=SARABJIT) NEGATIVE NEGATIVE UA LEUKOCYTE ESTERASE W REFLEX (test code=LEUUR) NEGATIVE NEGATIVE UA WBC (test code=WBCU) 0-5 per HPF 0-5 UA RBC (test code=RBCU) 0-2 #/HPF 0-5 UA EPITHELIAL CELLS (test code=EPIU) MOD per HPF FEW UA BACTERIA (test code=BACU) FEW #/HPF NONE UA HYALINE CAST (test code=HYALU) 3-5 #/LPF 0-5 UA MUCUS (test code=MUCU) MODERATE #/LPF FEW Urine Source? Clean CatchURINALYSIS [id number] 16:36:00* Test Item Value Reference Range Comments UA COLOR (test code=COLU) YELLOW YELLOW UA APPEARANCE (test code=APPU) HAZY CLEAR UA GLUCOSE DIPSTICK (test code=DGLUU) NEGATIVE mg/dL NEGATIVE UA BILIRUBIN DIPSTICK (test code=BILU) 1+ (Small 0.5-1.0) NEGATIVE UA KETONE DIPSTICK (test code=KETU) TRACE mg/dL NEGATIVE UA SPECIFIC GRAVITY (test code=SGU) 1.025 1.001-1.035 UA BLOOD DIPSTICK (test code=SALOME) NEGATIVE NEGATIVE UA PH DIPSTICK (test code=KYLAH) 6.0 5.0-8.0 UA PROTEIN DIPSTICK (test code=PROU) 100 (2+) mg/dL Neg-15 UA UROBILINIOGEN DIPSTICK (test code=URO) 1 mg/dL (1+) mg/dL 0.0-0.2 UA NITRITE DIPSTICK (test code=SARABJIT) NEGATIVE NEGATIVE UA LEUKOCYTE ESTERASE W REFLEX (test code=LEUUR) NEGATIVE NEGATIVE UA WBC (test code=WBCU) per HPF 0-5 Urine Source? Clean CatchCOMPREHENSIVE METABOLIC [id number] 14:59:00* Test Item Value Reference Range Comments SODIUM (test code=NA) 138 mmol/L 136-145 POTASSIUM (test code=K) 3.2 mmol/L 3.5-5.1 CHLORIDE (test code=CL) 100.0 mmol/L 98-107 CARBON DIOXIDE (test code=CO2) 32.0 mmol/L 21-32 ANION GAP (test code=GAP) 9.2 10-20 GLUCOSE (test code=GLU) 198 mg/dL 74-106 BLOOD UREA NITROGEN (test code=BUN) 16 mg/dL 7-18 GLOMERULAR FILTRATION RATE (test code=GFR) > 60 mL/min >=60 Estimated GFR by using Modified MDRD formula.Chronic kidney disease is defined as either kidney damageor GFR <60 mL/min/1.73 m2 for >3 months. CREATININE (test code=CREAT) 0.60 mg/dL 0.55-1.02 Note change in reference range due to change in reagent. BUN/CREATININE RATIO (test code=BUN/CREA) 26.7 10-20 TOTAL PROTEIN (test code=PROT) 7.9 gram/dL 6.4-8.2 ALBUMIN (test code=ALB) 3.9 g/dL 3.4-5.0 GLOBULIN (test code=GLOB) 4.0 gram/dL 2.7-4.2 ALBUMIN/GLOBULIN RATIO (test code=A/G) 1.0 0.75-1.50 CALCIUM (test code=CA) 9.1 mg/dL 8.5-10.1 BILIRUBIN TOTAL (test code=BILT) 0.70 mg/dL 0.0-1.0 SGOT/AST (test code=AST) 20 IUnit/L 15-37 SGPT/ALT (test code=ALT) 26 IUnit/L 12-78 ALKALINE PHOSPHATASE TOTAL (test code=ALKP) 129 IUnit/L 45-117 Note change in reference range due to change in reagent. [id number] 14:59:00* Test Item Value Reference Range Comments LIPASE (test code=LIP) 155 U/L 73.0-393.0 [id number] 14:59:00* Test Item Value Reference Range Comments CKMB (test code=CKMBT) 2.1 ng/mL 0-6.0 [id number] 14:59:00* Test Item Value Reference Range Comments TROPONIN-I (test code=TROPI) 0.015 ng/mL 0-0.045 COMPREHENSIVE METABOLIC [id number] 14:48:00* Test Item Value Reference Range Comments SODIUM (test code=NA) 138 mmol/L 136-145 POTASSIUM (test code=K) 3.2 mmol/L 3.5-5.1 CHLORIDE (test code=CL) 100.0 mmol/L 98-107 CARBON DIOXIDE (test code=CO2) mmol/L 21-32 ANION GAP (test code=GAP) 10-20 GLUCOSE (test code=GLU) mg/dL 74-106 BLOOD UREA NITROGEN (test code=BUN) mg/dL 7-18 GLOMERULAR FILTRATION RATE (test code=GFR) mL/min >=60 CREATININE (test code=CREAT) mg/dL 0.55-1.02 BUN/CREATININE RATIO (test code=BUN/CREA) 10-20 TOTAL PROTEIN (test code=PROT) gram/dL 6.4-8.2 ALBUMIN (test code=ALB) g/dL 3.4-5.0 GLOBULIN (test code=GLOB) gram/dL 2.7-4.2 ALBUMIN/GLOBULIN RATIO (test code=A/G) 0.75-1.50 CALCIUM (test code=CA) mg/dL 8.5-10.1 BILIRUBIN TOTAL (test code=BILT) mg/dL 0.0-1.0 SGOT/AST (test code=AST) IUnit/L 15-37 SGPT/ALT (test code=ALT) IUnit/L 12-78 ALKALINE PHOSPHATASE TOTAL (test code=ALKP) IUnit/L 45-117 [id number] 14:48:00* Test Item Value Reference Range Comments LIPASE (test code=LIP) U/L 73.0-393.0 [id number] 14:48:00* Test Item Value Reference Range Comments CKMB (test code=CKMBT) ng/mL 0-6.0 [id number] 14:48:00* Test Item Value Reference Range Comments TROPONIN-I (test code=TROPI) ng/mL 0-0.045 CBC W/AUTO [id number] 14:46:00* Test Item Value Reference Range Comments WHITE BLOOD CELL (test code=WBC) 7.8 K/mm3 4.5-12.5 RED BLOOD CELL (test code=RBC) 5.25 mill/mm3 3.7-5.2 HEMOGLOBIN (test code=HGB) 14.5 gram/dL 11.5-15.5 HEMATOCRIT (test code=HCT) 44.4 % 36.0-46.0 MEAN CELL VOLUME (test code=MCV) 84.6 fL 80-98 MEAN CELL HGB (test code=MCH) 27.6 picogram 27.0-33.0 MEAN CELL HGB CONCETRATION (test code=MCHC) 32.7 gram/dL 33.0-36.0 RED CELL DISTRIBUTION WIDTH (test code=RDW) 11.9 % 11.6-16.2 RED CELL DISTRIBUTION WIDTH SD (test code=RDW-SD) 35.8 fL 37.0-51.0 PLATELET COUNT (test code=PLT) 255 K/mm3 150-450 MEAN PLATELET VOLUME (test code=MPV) 11.1 fL 6.7-11.0 NEUTROPHIL % (test code=NT%) 53.9 % 39.0-69.0 IMMATURE GRANULOCYTE % (test code=IG%) 0.1 % 0.0-5.0 LYMPHOCYTE % (test code=LY%) 29.7 % 25.0-55.0 MONOCYTE % (test code=MO%) 7.3 % 0.0-10.0 EOSINOPHIL % (test code=EO%) 7.7 % 0.0-5.0 BASOPHIL % (test code=BA%) 1.3 % 0.0-1.0 NUCLEATED RBC % (test code=NRBC%) 0.0 % 0-0 NEUTROPHIL # (test code=NT#) 4.20 K/mm3 1.8-7.7 IMMATURE GRANULOCYTE # (test code=IG#) 0.01 x10 3/uL 0-0.03 LYMPHOCYTE # (test code=LY#) 2.32 K/mm3 1.0-5.0 MONOCYTE # (test code=MO#) 0.57 K/mm3 0-0.8 EOSINOPHIL # (test code=EO#) 0.60 K/mm3 0.0-0.5 BASOPHIL # (test code=BA#) 0.10 K/mm3 0.0-0.2 NUCLEATED RBC # (test code=NRBC#) 0.00 K/mm3 0.0-0.1 MANUAL DIFF REQUIRED (test code=MDIFF) NO - XR CHEST 2 [id number] 14:32:00 FAX: Shellie Jean Baptiste [phone] [place]: St: REG Name: Vernell GERJANE MAYWILMAN [facility] : [birth year] Age/S: 53/F [address] [facility]: [id number] Loc: [place] [address] Phys: Shellie Metcalf MD Acct: [id number] Dis Date: Status: REG ER PHONE #: [phone] Exam Date: 02/08/2019 1424 FAX #: [phone] Reason: chest pain, htn EXAMS: CPT CODE: [id number] XR CHEST 2 V 57565 REASON FOR EXAM: chest pain, htn Exam Order Date: 02/08/2019 2:03 PM Ordering Pooja Alberto: Shellie Metcalf MD PROCEDURE: - XR CHEST 2 V COMPARISON: December 16, 2018. FINDINGS: The lungs are cl ear. There is no pleural effusion or pneumothorax. Pulmonary vascularity is within normal limits. Cardiomediastinal silhouette is normal in size for technique. The mediastinal contours are within normal limits. Musculoskeletal structures are within normal limits. The visualized upper abdomen is within normal limits. IMP RESSION: No acute cardiopulmonary process. Electronically S igned by Enoch Gutiérrez M.D. on 02/08/2019 at 143 2 Reported and signed by: Enoch Alberto CC: Shellie Metcalf MD Te chnologist: RT SYMONE(R) Trnscrd Date/ Time/By: 02/08/2019 (1436) : By: [email or web address] Orig Print D/T: S: 02/09/20 (9185) PAGE 1 Signed Report [id number] 11:40:00* Test Item Value Reference Range Comments GLUBED (test code=GLUBED) 278 mg/dL 74-106 Performed by certified otr owner operator at [facility] - XR CHEST 1 [id number] 08:46:00 FAX: Kade De La Garza MD [place]: B St: ADM Name: Vernell GERYADIRADIANA [facility] : [birth year] Age/S: 53/F [address] Unit #: [id number] Loc: V.3071 [place] [address] Phys: Kade Thornton MD Acct: [id number] Dis Date: Status: ADM IN PHONE #: [phone] Exam Date: 12/16/2018 0756 FAX #: [phone] Reason: SOB EXAMS: CPT CODE: [id number] XR CHEST 1 V 88055 REASON FOR EXAM: SOB EXAM ORDER DATE: 12/16/2018 7:00 AM Ordering Guillermo: Kade Thornton MD PROCEDURE: - XR CHEST 1 V COMPARISON: 12/11/2018 FINDINGS: Portable AP frontal view of the chest obtaine d at 8:01 AM shows clear lungs. There is no evidence of consolidation. The re is no evidence of effusion. The heart size is within normal limits. Pulmonary vasculatures are unremarkable. IMPRESSION: No acti ve disease. at 0 846 Reported and signed by: Emil Rodriguez M.D. CC: Kade Thornton Technologist: AUDI ADAMS RT; Yancy Humphrey RT(R) Trnscrd Date/Time/By: 0 12/16/2018 (0846) : By: AltonVTL Orig Print D/T: S: 12/16/2018 (0849) PAGE 1 Signed Report [id number] 07:36:00* Test Item Value Reference Range Comments GLUBED (test code=GLUBED) 186 mg/dL 74-106 Performed by certified otr owner operator at [facility] B-TYPE NATRIURETIC [id number] 05:15:00* Test Item Value Reference Range Comments B-TYPE NATRIURETIC PEPTIDE (test code=BNP) 84.57 pgram/mL 0-100 BASIC METABOLIC [id number] 05:15:00* Test Item Value Reference Range Comments SODIUM (test code=NA) 139 mmol/L 136-145 POTASSIUM (test code=K) 3.9 mmol/L 3.5-5.1 CHLORIDE (test code=CL) 102.0 mmol/L 98-107 CARBON DIOXIDE (test code=CO2) 31.0 mmol/L 21-32 ANION GAP (test code=GAP) 9.9 10-20 GLUCOSE (test code=GLU) 157 mg/dL 74-106 BLOOD UREA NITROGEN (test code=BUN) 15 mg/dL 7-18 GLOMERULAR FILTRATION RATE (test code=GFR) > 60 mL/min >=60 Estimated GFR by using Modified MDRD formula.Chronic kidney disease is defined as either kidney damageor GFR <60 mL/min/1.73 m2 for >3 months. CREATININE (test code=CREAT) 0.50 mg/dL 0.55-1.02 Note change in reference range due to change in reagent. BUN/CREATININE RATIO (test code=BUN/CREA) 33.1 10-20 CALCIUM (test code=CA) 8.9 mg/dL 8.5-10.1 BASIC METABOLIC [id number] 05:08:00* Test Item Value Reference Range Comments SODIUM (test code=NA) 139 mmol/L 136-145 POTASSIUM (test code=K) 3.9 mmol/L 3.5-5.1 CHLORIDE (test code=CL) 102.0 mmol/L 98-107 CARBON DIOXIDE (test code=CO2) mmol/L 21-32 ANION GAP (test code=GAP) 10-20 GLUCOSE (test code=GLU) mg/dL 74-106 BLOOD UREA NITROGEN (test code=BUN) mg/dL 7-18 GLOMERULAR FILTRATION RATE (test code=GFR) mL/min >=60 CREATININE (test code=CREAT) mg/dL 0.55-1.02 BUN/CREATININE RATIO (test code=BUN/CREA) 10-20 CALCIUM (test code=CA) mg/dL 8.5-10.1 CBC W/AUTO [id number] 04:57:00* Test Item Value Reference Range Comments WHITE BLOOD CELL (test code=WBC) 7.9 K/mm3 4.5-12.5 RED BLOOD CELL (test code=RBC) 4.78 mill/mm3 3.7-5.2 HEMOGLOBIN (test code=HGB) 14.0 gram/dL 11.5-15.5 HEMATOCRIT (test code=HCT) 40.6 % 36.0-46.0 MEAN CELL VOLUME (test code=MCV) 84.9 fL 80-98 MEAN CELL HGB (test code=MCH) 29.3 picogram 27.0-33.0 MEAN CELL HGB CONCETRATION (test code=MCHC) 34.5 gram/dL 33.0-36.0 RED CELL DISTRIBUTION WIDTH (test code=RDW) 11.9 % 11.6-16.2 RED CELL DISTRIBUTION WIDTH SD (test code=RDW-SD) 36.5 fL 37.0-51.0 PLATELET COUNT (test code=PLT) 215 K/mm3 150-450 MEAN PLATELET VOLUME (test code=MPV) 10.9 fL 6.7-11.0 NEUTROPHIL % (test code=NT%) 55.9 % 39.0-69.0 IMMATURE GRANULOCYTE % (test code=IG%) 0.4 % 0.0-5.0 LYMPHOCYTE % (test code=LY%) 24.7 % 25.0-55.0 MONOCYTE % (test code=MO%) 8.3 % 0.0-10.0 EOSINOPHIL % (test code=EO%) 9.9 % 0.0-5.0 BASOPHIL % (test code=BA%) 0.8 % 0.0-1.0 NUCLEATED RBC % (test code=NRBC%) 0.0 % 0-0 NEUTROPHIL # (test code=NT#) 4.44 K/mm3 1.8-7.7 IMMATURE GRANULOCYTE # (test code=IG#) 0.03 x10 3/uL 0-0.03 LYMPHOCYTE # (test code=LY#) 1.96 K/mm3 1.0-5.0 MONOCYTE # (test code=MO#) 0.66 K/mm3 0-0.8 EOSINOPHIL # (test code=EO#) 0.79 K/mm3 0.0-0.5 BASOPHIL # (test code=BA#) 0.06 K/mm3 0.0-0.2 NUCLEATED RBC # (test code=NRBC#) 0.00 K/mm3 0.0-0.1 MANUAL DIFF REQUIRED (test code=MDIFF) NO [id number] 22:11:00* Test Item Value Reference Range Comments GLUBED (test code=GLUBED) 192 mg/dL 74-106 Performed by certified otr owner operator at [facility] [id number] 15:34:00* Test Item Value Reference Range Comments GLUBED (test code=GLUBED) 212 mg/dL 74-106 Performed by certified otr owner operator at [facility] [id number] 11:51:00* Test Item Value Reference Range Comments GLUBED (test code=GLUBED) 234 mg/dL 74-106 Performed by certified otr owner operator at [facility] [id number] 10:52:00* Test Item Value Reference Range Comments GLUBED (test code=GLUBED) 195 mg/dL 74-106 Performed by certified otr owner operator at [facility] BASIC METABOLIC [id number] 05:34:00* Test Item Value Reference Range Comments SODIUM (test code=NA) 139 mmol/L 136-145 POTASSIUM (test code=K) 3.6 mmol/L 3.5-5.1 CHLORIDE (test code=CL) 101.0 mmol/L 98-107 CARBON DIOXIDE (test code=CO2) 31.0 mmol/L 21-32 ANION GAP (test code=GAP) 10.6 10-20 GLUCOSE (test code=GLU) 205 mg/dL 74-106 BLOOD UREA NITROGEN (test code=BUN) 14 mg/dL 7-18 GLOMERULAR FILTRATION RATE (test code=GFR) > 60 mL/min >=60 Estimated GFR by using Modified MDRD formula.Chronic kidney disease is defined as either kidney damageor GFR <60 mL/min/1.73 m2 for >3 months. CREATININE (test code=CREAT) 0.50 mg/dL 0.55-1.02 Note change in reference range due to change in reagent. BUN/CREATININE RATIO (test code=BUN/CREA) 28.5 10-20 CALCIUM (test code=CA) 8.5 mg/dL 8.5-10.1 [id number] 05:34:00* Test Item Value Reference Range Comments PHOSPHORUS (test code=PHOS) 3.9 mg/dL 2.5-4.9 [id number] 05:34:00* Test Item Value Reference Range Comments MAGNESIUM (test code=MAG) 1.6 mg/dL 1.8-2.4 BASIC METABOLIC [id number] 05:22:00* Test Item Value Reference Range Comments SODIUM (test code=NA) 139 mmol/L 136-145 POTASSIUM (test code=K) 3.6 mmol/L 3.5-5.1 CHLORIDE (test code=CL) 101.0 mmol/L 98-107 CARBON DIOXIDE (test code=CO2) mmol/L 21-32 ANION GAP (test code=GAP) 10-20 GLUCOSE (test code=GLU) mg/dL 74-106 BLOOD UREA NITROGEN (test code=BUN) mg/dL 7-18 GLOMERULAR FILTRATION RATE (test code=GFR) mL/min >=60 CREATININE (test code=CREAT) mg/dL 0.55-1.02 BUN/CREATININE RATIO (test code=BUN/CREA) 10-20 CALCIUM (test code=CA) mg/dL 8.5-10.1 [id number] 05:22:00* Test Item Value Reference Range Comments PHOSPHORUS (test code=PHOS) mg/dL 2.5-4.9 [id number] 05:22:00* Test Item Value Reference Range Comments MAGNESIUM (test code=MAG) mg/dL 1.8-2.4 CBC W/AUTO [id number] 04:56:00* Test Item Value Reference Range Comments WHITE BLOOD CELL (test code=WBC) 8.2 K/mm3 4.5-12.5 RED BLOOD CELL (test code=RBC) 4.72 mill/mm3 3.7-5.2 HEMOGLOBIN (test code=HGB) 13.4 gram/dL 11.5-15.5 HEMATOCRIT (test code=HCT) 40.5 % 36.0-46.0 MEAN CELL VOLUME (test code=MCV) 85.8 fL 80-98 MEAN CELL HGB (test code=MCH) 28.4 picogram 27.0-33.0 MEAN CELL HGB CONCETRATION (test code=MCHC) 33.1 gram/dL 33.0-36.0 RED CELL DISTRIBUTION WIDTH (test code=RDW) 11.7 % 11.6-16.2 RED CELL DISTRIBUTION WIDTH SD (test code=RDW-SD) 36.4 fL 37.0-51.0 PLATELET COUNT (test code=PLT) 210 K/mm3 150-450 MEAN PLATELET VOLUME (test code=MPV) 11.3 fL 6.7-11.0 NEUTROPHIL % (test code=NT%) 50.8 % 39.0-69.0 IMMATURE GRANULOCYTE % (test code=IG%) 0.6 % 0.0-5.0 LYMPHOCYTE % (test code=LY%) 25.9 % 25.0-55.0 MONOCYTE % (test code=MO%) 8.4 % 0.0-10.0 EOSINOPHIL % (test code=EO%) 13.4 % 0.0-5.0 BASOPHIL % (test code=BA%) 0.9 % 0.0-1.0 NUCLEATED RBC % (test code=NRBC%) 0.0 % 0-0 NEUTROPHIL # (test code=NT#) 4.15 K/mm3 1.8-7.7 IMMATURE GRANULOCYTE # (test code=IG#) 0.05 x10 3/uL 0-0.03 LYMPHOCYTE # (test code=LY#) 2.12 K/mm3 1.0-5.0 MONOCYTE # (test code=MO#) 0.69 K/mm3 0-0.8 EOSINOPHIL # (test code=EO#) 1.10 K/mm3 0.0-0.5 BASOPHIL # (test code=BA#) 0.07 K/mm3 0.0-0.2 NUCLEATED RBC # (test code=NRBC#) 0.00 K/mm3 0.0-0.1 [id number] 20:01:00* Test Item Value Reference Range Comments GLUBED (test code=GLUBED) 256 mg/dL 74-106 Performed by certified otr owner operator at [facility] [id number] 16:18:00* Test Item Value Reference Range Comments GLUBED (test code=GLUBED) 254 mg/dL 74-106 Performed by certified otr owner operator at [facility] [id number] 11:41:00* Test Item Value Reference Range Comments GLUBED (test code=GLUBED) 265 mg/dL 74-106 Performed by certified otr owner operator at [facility] CBC W/AUTO [id number] 10:19:00* Test Item Value Reference Range Comments WHITE BLOOD CELL (test code=WBC) 8.3 K/mm3 4.5-12.5 RED BLOOD CELL (test code=RBC) 4.67 mill/mm3 3.7-5.2 HEMOGLOBIN (test code=HGB) 13.5 gram/dL 11.5-15.5 HEMATOCRIT (test code=HCT) 40.2 % 36.0-46.0 MEAN CELL VOLUME (test code=MCV) 86.1 fL 80-98 MEAN CELL HGB (test code=MCH) 28.9 picogram 27.0-33.0 MEAN CELL HGB CONCETRATION (test code=MCHC) 33.6 gram/dL 33.0-36.0 RED CELL DISTRIBUTION WIDTH (test code=RDW) 11.9 % 11.6-16.2 RED CELL DISTRIBUTION WIDTH SD (test code=RDW-SD) 36.9 fL 37.0-51.0 PLATELET COUNT (test code=PLT) 213 K/mm3 150-450 MEAN PLATELET VOLUME (test code=MPV) 11.2 fL 6.7-11.0 NEUTROPHIL % (test code=NT%) 60.4 % 39.0-69.0 IMMATURE GRANULOCYTE % (test code=IG%) 0.5 % 0.0-5.0 LYMPHOCYTE % (test code=LY%) 19.8 % 25.0-55.0 MONOCYTE % (test code=MO%) 7.2 % 0.0-10.0 EOSINOPHIL % (test code=EO%) 11.4 % 0.0-5.0 BASOPHIL % (test code=BA%) 0.7 % 0.0-1.0 NUCLEATED RBC % (test code=NRBC%) 0.0 % 0-0 NEUTROPHIL # (test code=NT#) 4.99 K/mm3 1.8-7.7 IMMATURE GRANULOCYTE # (test code=IG#) 0.04 x10 3/uL 0-0.03 LYMPHOCYTE # (test code=LY#) 1.63 K/mm3 1.0-5.0 MONOCYTE # (test code=MO#) 0.59 K/mm3 0-0.8 EOSINOPHIL # (test code=EO#) 0.94 K/mm3 0.0-0.5 BASOPHIL # (test code=BA#) 0.06 K/mm3 0.0-0.2 NUCLEATED RBC # (test code=NRBC#) 0.00 K/mm3 0.0-0.1 MANUAL DIFF REQUIRED (test code=MDIFF) NO BASIC METABOLIC [id number] 08:01:00* Test Item Value Reference Range Comments SODIUM (test code=NA) 139 mmol/L 136-145 POTASSIUM (test code=K) 4.3 mmol/L 3.5-5.1 CHLORIDE (test code=CL) 103.0 mmol/L 98-107 CARBON DIOXIDE (test code=CO2) 28.0 mmol/L 21-32 ANION GAP (test code=GAP) 12.3 10-20 GLUCOSE (test code=GLU) 197 mg/dL 74-106 BLOOD UREA NITROGEN (test code=BUN) 16 mg/dL 7-18 GLOMERULAR FILTRATION RATE (test code=GFR) > 60 mL/min >=60 Estimated GFR by using Modified MDRD formula.Chronic kidney disease is defined as either kidney damageor GFR <60 mL/min/1.73 m2 for >3 months. CREATININE (test code=CREAT) 0.50 mg/dL 0.55-1.02 Note change in reference range due to change in reagent. BUN/CREATININE RATIO (test code=BUN/CREA) 34.5 10-20 CALCIUM (test code=CA) 8.5 mg/dL 8.5-10.1 [id number] 08:01:00* Test Item Value Reference Range Comments MAGNESIUM (test code=MAG) 1.6 mg/dL 1.8-2.4 BASIC METABOLIC [id number] 07:54:00* Test Item Value Reference Range Comments SODIUM (test code=NA) 139 mmol/L 136-145 POTASSIUM (test code=K) 4.3 mmol/L 3.5-5.1 CHLORIDE (test code=CL) 103.0 mmol/L 98-107 CARBON DIOXIDE (test code=CO2) mmol/L 21-32 ANION GAP (test code=GAP) 10-20 GLUCOSE (test code=GLU) mg/dL 74-106 BLOOD UREA NITROGEN (test code=BUN) mg/dL 7-18 GLOMERULAR FILTRATION RATE (test code=GFR) mL/min >=60 CREATININE (test code=CREAT) mg/dL 0.55-1.02 BUN/CREATININE RATIO (test code=BUN/CREA) 10-20 CALCIUM (test code=CA) mg/dL 8.5-10.1 [id number] 07:54:00* Test Item Value Reference Range Comments MAGNESIUM (test code=MAG) mg/dL 1.8-2.4 [id number] 07:52:00* Test Item Value Reference Range Comments GLUBED (test code=GLUBED) 195 mg/dL 74-106 Performed by certified otr owner operator at [facility] [id number] 20:16:00* Test Item Value Reference Range Comments GLUBED (test code=GLUBED) 177 mg/dL 74-106 Performed by certified otr owner operator at [facility] [id number] 16:48:00* Test Item Value Reference Range Comments GLUBED (test code=GLUBED) 187 mg/dL 74-106 Performed by certified otr owner operator at [facility] BASIC METABOLIC [id number] 13:10:00* Test Item Value Reference Range Comments SODIUM (test code=NA) 139 mmol/L 136-145 POTASSIUM (test code=K) 3.4 mmol/L 3.5-5.1 CHLORIDE (test code=CL) 102.0 mmol/L 98-107 CARBON DIOXIDE (test code=CO2) 28.0 mmol/L 21-32 ANION GAP (test code=GAP) 12.4 10-20 GLUCOSE (test code=GLU) 321 mg/dL 74-106 BLOOD UREA NITROGEN (test code=BUN) 18 mg/dL 7-18 GLOMERULAR FILTRATION RATE (test code=GFR) > 60 mL/min >=60 Estimated GFR by using Modified MDRD formula.Chronic kidney disease is defined as either kidney damageor GFR <60 mL/min/1.73 m2 for >3 months. CREATININE (test code=CREAT) 0.60 mg/dL 0.55-1.02 Note change in reference range due to change in reagent. BUN/CREATININE RATIO (test code=BUN/CREA) 31.4 10-20 CALCIUM (test code=CA) 8.5 mg/dL 8.5-10.1 PT WENT FOR STRESS TEST PER RN MY @V.LAB.SP3 [id number] PROFILE (CORONARY RISK)2018-12-13 13:10:00* Test Item Value Reference Range Comments TRIGLYCERIDES (test code=TRIG) 167 mg/dL 20-150 CHOLESTEROL (test code=CHOL) 153 mg/dL 0-200 CHOLESTEROL/HDL RATIO (test code=CHOLHDL) 3.0 RATIO 0-4.9 RISK ASSOCIATED WITH CHOL/HDL RATIOS: Risk Male Female1/2 AVERAGE 3.43 3.27AVERAGE 4.97 4.442X AVERAGE 9.55 7.053X AVERAGE 23.39 11.04 REFERENCE VALUE IS RELATED TO RISK LEVELS ASRECOMMENDED BY THE [facility]. HEART, LUNG, AND BLOOD INST. HDL CHOLESTEROL (test code=HDL) 39 mg/dL 40-60 LIPOPROTEIN LDL (test code=LDL) 89 mg/dL 100-129 Reference Interval: mg/dL mmol/L Optimal <100 <2.6Near/above optimal 100-129 2.6- 3.3Borderline High 130-159 3.4-4.1High 160-189 4.1-4.9Very High >=190 >=4.9=========This LDL result is a direct measurement.========= PT WENT FOR STRESS TEST PER RN MY @[facility] [employer].3 [id number] 13:10:00* Test Item Value Reference Range Comments MAGNESIUM (test code=MAG) 1.5 mg/dL 1.8-2.4 PT W[facility]ESS [facility] [id number] PROFILE W/TSH 2018-12-13 13:10:00* Test Item Value Reference Range Comments T3 UPTAKE (test code=T3UP) 36.0 % 30.0-40.0 T4 (THYROXINE) (test code=T4) 8.5 ug/dL 4.5-13.9 T7 (FREE THYROXINE INDEX) (test code=T7) 3.06 FTI 1.3-5.1 THYROID STIMULATING HORMONE (test code=TSH) 0.860 uIU/mL 0.36-3.74 TSH REFERENCE RANGES: EUTHYROID: 0.35 - 4.3 mIU/mL HYPO : > 5.5 mIU/mL HYPER : < 0.35 mIU/mL PT WENT FOR STRESS TEST PER RN MY [facility] [employer].SP3 023T4 [id number] 13:10:00* Test Item Value Reference Range Comments T4 FREE (test code=T4F) 1.22 ng/dL 0.76-1.46 PT WENT FOR STRESS TEST PER RN MY @[facility] [employer].LAB.SP3 12/13/[id number] NATRIURETIC [id number] 12:55:00* Test Item Value Reference Range Comments B-TYPE NATRIURETIC PEPTIDE (test code=BNP) 162.04 pgram/mL 0-100 PT WENT FOR STRESS TEST PER RN MY @[facility] [employer].[facility].SP3 [id number] 12:53:00* Test Item Value Reference Range Comments GLYCOSYLATED HEMOGLOBIN (HA1C) (test code=GLYHGB) 11.0 % HbA1 4.8-6.0 ESTIMATED AVERAGE GLUCOSE (test code=EAG) 269 MG/DL BASIC METABOLIC [id number] 12:53:00* Test Item Value Reference Range Comments SODIUM (test code=NA) 139 mmol/L 136-145 POTASSIUM (test code=K) 3.4 mmol/L 3.5-5.1 CHLORIDE (test code=CL) 102.0 mmol/L 98-107 CARBON DIOXIDE (test code=CO2) mmol/L 21-32 ANION GAP (test code=GAP) 10-20 GLUCOSE (test code=GLU) mg/dL 74-106 BLOOD UREA NITROGEN (test code=BUN) mg/dL 7-18 GLOMERULAR FILTRATION RATE (test code=GFR) mL/min >=60 CREATININE (test code=CREAT) mg/dL 0.55-1.02 BUN/CREATININE RATIO (test code=BUN/CREA) 10-20 CALCIUM (test code=CA) mg/dL 8.5-10.1 PT WENT FOR STRESS TEST PER RN MY @[facility] [employer].3 LIPID PROFILE (CORONARY RISK)2018-12-13 12:53:00* Test Item Value Reference Range Comments TRIGLYCERIDES (test code=TRIG) mg/dL 20-150 CHOLESTEROL (test code=CHOL) mg/dL 0-200 CHOLESTEROL/HDL RATIO (test code=CHOLHDL) RATIO 0-4.9 HDL CHOLESTEROL (test code=HDL) mg/dL 40-60 LIPOPROTEIN LDL (test code=LDL) mg/dL 100-129 PT WENT FOR STRESS TEST PER RN MY @[facility] [employer].SP3 [id number] 12:53:00* Test Item Value Reference Range Comments MAGNESIUM (test code=MAG) mg/dL 1.8-2.4 PT WENT FOR STRESS TEST PER RN MY @OctamerLAB.SP3 12/13/[id number] PROFILE W/TSH 2018-12-13 12:53:00* Test Item Value Reference Range Comments T3 UPTAKE (test code=T3UP) % 30.0-40.0 T4 (THYROXINE) (test code=T4) ug/dL 4.5-13.9 T7 (FREE THYROXINE INDEX) (test code=T7) FTI 1.3-5.1 THYROID STIMULATING HORMONE (test code=TSH) uIU/mL 0.36-3.74 PT WENT FOR STRESS TEST PER RN MY @[employer].SP3 12/13/701458V1 [id number] 12:53:00* Test Item Value Reference Range Comments T4 FREE (test code=T4F) ng/dL 0.76-1.46 PT WENT FOR STRESS TEST PER RN MY @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.SP3 12/13/315725ORV W/O [id number] 12:29:00* Test Item Value Reference Range Comments WHITE BLOOD CELL (test code=WBC) 9.4 K/mm3 4.5-12.5 RED BLOOD CELL (test code=RBC) 4.86 mill/mm3 3.7-5.2 HEMOGLOBIN (test code=HGB) 14.1 gram/dL 11.5-15.5 HEMATOCRIT (test code=HCT) 41.5 % 36.0-46.0 MEAN CELL VOLUME (test code=MCV) 85.4 fL 80-98 MEAN CELL HGB (test code=MCH) 29.0 picogram 27.0-33.0 MEAN CELL HGB CONCETRATION (test code=MCHC) 34.0 gram/dL 33.0-36.0 RED CELL DISTRIBUTION WIDTH (test code=RDW) 11.9 % 11.6-16.2 PLATELET COUNT (test code=PLT) 222 K/mm3 150-450 MEAN PLATELET VOLUME (test code=MPV) 11.1 fL 6.7-11.0 [id number] 12:10:00* Test Item Value Reference Range Comments GLUBED (test code=GLUBED) 330 mg/dL 74-106 Performed by certified otr owner operator at [facility] [id number] 12:10:00* Test Item Value Reference Range Comments GLUBED (test code=GLUBED) 259 mg/dL 74-106 Performed by certified otr owner operator at [facility] [id number] 21:10:00* Test Item Value Reference Range Comments GLUBED (test code=GLUBED) 246 mg/dL 74-106 Performed by certified otr owner operator at [facility] [id number] 16:46:00* Test Item Value Reference Range Comments GLUBED (test code=GLUBED) 261 mg/dL 74-106 Performed by certified otr owner operator at [facility] THYROID STIMULATING [id number] 11:42:00* Test Item Value Reference Range Comments THYROID STIMULATING HORMONE (test code=TSH) 2.080 uIU/mL 0.36-3.74 TSH REFERENCE RANGES: EUTHYROID: 0.35 - 4.3 mIU/mL HYPO : > 5.5 mIU/mL HYPER : < 0.35 mIU/mL [id number] 11:39:00* Test Item Value Reference Range Comments GLUBED (test code=GLUBED) 301 mg/dL 74-106 Performed by certified otr owner operator at [facility] [id number] 07:08:00* Test Item Value Reference Range Comments GLUBED (test code=GLUBED) 299 mg/dL 74-106 Performed by certified otr owner operator at [facility] BASIC METABOLIC [id number] 06:28:00* Test Item Value Reference Range Comments SODIUM (test code=NA) 137 mmol/L 136-145 POTASSIUM (test code=K) 3.0 mmol/L 3.5-5.1 Results called to by V.LAB.AA 12/12/18 0628Critical results verified and read back by Nurse? CHLORIDE (test code=CL) 102.0 mmol/L 98-107 CARBON DIOXIDE (test code=CO2) 26.0 mmol/L 21-32 ANION GAP (test code=GAP) 12.0 10-20 GLUCOSE (test code=GLU) 311 mg/dL 74-106 BLOOD UREA NITROGEN (test code=BUN) 15 mg/dL 7-18 GLOMERULAR FILTRATION RATE (test code=GFR) > 60 mL/min >=60 Estimated GFR by using Modified MDRD formula.Chronic kidney disease is defined as either kidney damageor GFR <60 mL/min/1.73 m2 for >3 months. CREATININE (test code=CREAT) 0.50 mg/dL 0.55-1.02 Note change in reference range due to change in reagent. BUN/CREATININE RATIO (test code=BUN/CREA) 30.5 10-20 CALCIUM (test code=CA) 8.6 mg/dL 8.5-10.1 [id number] 06:28:00* Test Item Value Reference Range Comments PHOSPHORUS (test code=PHOS) 3.8 mg/dL 2.5-4.9 [id number] 06:28:00* Test Item Value Reference Range Comments MAGNESIUM (test code=MAG) 1.4 mg/dL 1.8-2.4 CBC W/AUTO [id number] 06:18:00* Test Item Value Reference Range Comments WHITE BLOOD CELL (test code=WBC) 9.8 K/mm3 4.5-12.5 RED BLOOD CELL (test code=RBC) 4.90 mill/mm3 3.7-5.2 HEMOGLOBIN (test code=HGB) 14.1 gram/dL 11.5-15.5 HEMATOCRIT (test code=HCT) 41.0 % 36.0-46.0 MEAN CELL VOLUME (test code=MCV) 83.7 fL 80-98 MEAN CELL HGB (test code=MCH) 28.8 picogram 27.0-33.0 MEAN CELL HGB CONCETRATION (test code=MCHC) 34.4 gram/dL 33.0-36.0 RED CELL DISTRIBUTION WIDTH (test code=RDW) 11.9 % 11.6-16.2 RED CELL DISTRIBUTION WIDTH SD (test code=RDW-SD) 35.6 fL 37.0-51.0 PLATELET COUNT (test code=PLT) 221 K/mm3 150-450 MEAN PLATELET VOLUME (test code=MPV) 11.6 fL 6.7-11.0 NEUTROPHIL % (test code=NT%) 56.9 % 39.0-69.0 IMMATURE GRANULOCYTE % (test code=IG%) 0.4 % 0.0-5.0 LYMPHOCYTE % (test code=LY%) 26.3 % 25.0-55.0 MONOCYTE % (test code=MO%) 7.8 % 0.0-10.0 EOSINOPHIL % (test code=EO%) 7.7 % 0.0-5.0 BASOPHIL % (test code=BA%) 0.9 % 0.0-1.0 NUCLEATED RBC % (test code=NRBC%) 0.0 % 0-0 NEUTROPHIL # (test code=NT#) 5.58 K/mm3 1.8-7.7 IMMATURE GRANULOCYTE # (test code=IG#) 0.04 x10 3/uL 0-0.03 LYMPHOCYTE # (test code=LY#) 2.58 K/mm3 1.0-5.0 MONOCYTE # (test code=MO#) 0.76 K/mm3 0-0.8 EOSINOPHIL # (test code=EO#) 0.75 K/mm3 0.0-0.5 BASOPHIL # (test code=BA#) 0.09 K/mm3 0.0-0.2 NUCLEATED RBC # (test code=NRBC#) 0.00 K/mm3 0.0-0.1 [id number] 02:16:00* Test Item Value Reference Range Comments TROPONIN-I (test code=TROPI) 0.026 ng/mL 0-0.045 COMMENTS TO TARIFF SUPERVISOR: COLLECT 3 HOURS AFTER PREVIOUS [id number] 23:12:00* Test Item Value Reference Range Comments TROPONIN-I (test code=TROPI) 0.016 ng/mL 0-0.045 COMMENTS TO TARIFF SUPERVISOR: COLLECT 3 HOURS AFTER PREVIOUS SAMPLE- XR CHEST 1 [id number] 21:34:00 FAX: Radha Weston NP [place]: [address]: PRE Name: Vernell GERDIANA MAY [facility] : [birth year] Age/S: 53/F [address] [facility] Unit #: [id number] Loc: [place] [address] Phys: Radha Weston NP Acct: [id number] Dis Date: Status: PRE ER PHONE #: [phone] Exam Date: 12/11/20182114 FAX #: [phone] Reason: CHEST PAIN EXAMS: CPT CODE: [id number] XR CHEST 1 V 77915 EXAM: Chest x-ray, one view; INFORMATION: Chest pain; FINDINGS: Lungs are clear; no infiltrates, no edema; no obvious effusions. Aortic calcification; the heart is slightly enlarged. IMPRESSION: 1. Mild cardiom egaly. 2. Otherwise, no evidence of active cardiopulmonary disease is no major change compared with a study from September 23, 2018. at 2133 Reported and signed by: Edgar Lundberg M.D. CC: Radha Weston NP Technologist: VASYL MCCORD; RT Court(R Trnscrd Date/Time/By: 12/11/2018 (2133) : By: AltonGRW Orig Print D/T: S: 12/11/2018 (2136) PAGE 1 Signed Report BASIC METABOLIC PANEL 2018-12-11 21:12:00* Test Item Value Reference Range Comments SODIUM (test code=NA) 137 mmol/L 136-145 POTASSIUM (test code=K) 3.3 mmol/L 3.5-5.1 CHLORIDE (test code=CL) 100.0 mmol/L 98-107 CARBON DIOXIDE (test code=CO2) 30.0 mmol/L 21-32 ANION GAP (test code=GAP) 10.3 10-20 GLUCOSE (test code=GLU) 388 mg/dL 74-106 BLOOD UREA NITROGEN (test code=BUN) 16 mg/dL 7-18 GLOMERULAR FILTRATION RATE (test code=GFR) > 60 mL/min >=60 Estimated GFR by using Modified MDRD formula.Chronic kidney disease is defined as either kidney damageor GFR <60 mL/min/1.73 m2 for >3 months. CREATININE (test code=CREAT) 0.70 mg/dL 0.55-1.02 Note change in reference range due to change in reagent. BUN/CREATININE RATIO (test code=BUN/CREA) 23.3 10-20 CALCIUM (test code=CA) 9.2 mg/dL 8.5-10.1 [id number] 21:12:00* Test Item Value Reference Range Comments TROPONIN-I (test code=TROPI) 0.015 ng/mL 0-0.045 BASIC METABOLIC [id number] 20:54:00* Test Item Value Reference Range Comments SODIUM (test code=NA) 137 mmol/L 136-145 POTASSIUM (test code=K) 3.3 mmol/L 3.5-5.1 CHLORIDE (test code=CL) 100.0 mmol/L 98-107 CARBON DIOXIDE (test code=CO2) mmol/L 21-32 ANION GAP (test code=GAP) 10-20 GLUCOSE (test code=GLU) mg/dL 74-106 BLOOD UREA NITROGEN (test code=BUN) mg/dL 7-18 GLOMERULAR FILTRATION RATE (test code=GFR) mL/min >=60 CREATININE (test code=CREAT) mg/dL 0.55-1.02 BUN/CREATININE RATIO (test code=BUN/CREA) 10-20 CALCIUM (test code=CA) mg/dL 8.5-10.1 [id number] 20:54:00* Test Item Value Reference Range Comments TROPONIN-I (test code=TROPI) ng/mL 0-0.045 CBC W/O [id number] 20:43:00* Test Item Value Reference Range Comments WHITE BLOOD CELL (test code=WBC) 8.8 K/mm3 4.5-12.5 RED BLOOD CELL (test code=RBC) 5.01 mill/mm3 3.7-5.2 HEMOGLOBIN (test code=HGB) 14.6 gram/dL 11.5-15.5 HEMATOCRIT (test code=HCT) 41.5 % 36.0-46.0 MEAN CELL VOLUME (test code=MCV) 82.8 fL 80-98 MEAN CELL HGB (test code=MCH) 29.1 picogram 27.0-33.0 MEAN CELL HGB CONCETRATION (test code=MCHC) 35.2 gram/dL 33.0-36.0 RED CELL DISTRIBUTION WIDTH (test code=RDW) 11.9 % 11.6-16.2 PLATELET COUNT (test code=PLT) 227 K/mm3 150-450 MEAN PLATELET VOLUME (test code=MPV) 11.0 fL 6.7-11.0
[2019-05-23 13:53] LABS: BASOPHILS % 0.2 % (0.0-1.0); EOSINOPHILS # (AUTO) 0.2 (0.0-0.4); EOSINOPHILS % 1.8 % (0.0-6.0); HEMATOCRIT 41.1 % (34.2-44.1); HEMOGLOBIN 14.7 g/dL (12.0-16.0); LYMPHOCYTES % 9.8 % (18.0-39.1); MEAN CORPUSCULAR HEMOGLOBIN 29.3 pg (28-32); MEAN CORPUSCULAR HGB CONC 35.8 g/dL (31-35); MONOCYTES # (AUTO) 0.5 (0.2-0.8); MONOCYTES % 5.2 % (4.4-11.3); NEUTROPHILS # (AUTO) 8.1 (2.1-6.9); NEUTROPHILS % 82.4 % (38.7-80.0); PLATELET COUNT 236 x10e3/uL (140-360); RED BLOOD COUNT 5.01 x10e6/uL (3.6-5.1); RED CELL DISTRIBUTION WIDTH 11.9 % (11.7-14.4)
[2019-05-23 13:56] LABS: BILIRUBIN,URINE NEGATIVE (NEGATIVE); CLARITY,URINE SL CLOUDY (CLEAR); COLOR,URINE YELLOW (YELLOW); KETONES,URINE NEGATIVE (NEGATIVE); LEUKOCYTE ESTERASE ,URINE NEGATIVE (NEGATIVE); NITRITE,URINE NEGATIVE (NEGATIVE); PROTEIN,URINE DIPSTICK 2+ (NEGATIVE); URINE UROBILINOGEN 1 mg/dL (0.2 - 1)
[2019-05-23 14:12] LABS: ALANINE AMINOTRANSFERASE 31 IU/L (0-55); ALBUMIN 4.1 g/dL (3.5-5.0); ALBUMIN/GLOBULIN RATIO 0.9 (0.8-2.0); ALKALINE PHOSPHATASE 115 IU/L (40-150); ANION GAP 13.4 mmol/L (8-16); BLOOD UREA NITROGEN 19 mg/dL (7-26); BUN/CREATININE RATIO 25 (6-25); CALCIUM 9.6 mg/dL (8.4-10.2); CARBON DIOXIDE 29 mmol/L (22-29); CHLORIDE 98 mmol/L (98-107); CREATININE, SERUM 0.77 mg/dL (0.57-1.11); EST GLOMERULAR FILTRATION RATE > 60 ML/MIN (60-); GLUCOSE 268 mg/dL (74-118); POTASSIUM 3.4 mmol/L (3.5-5.1); SODIUM 137 mmol/L (136-145)
[2019-05-23 14:15] LABS: BACTERIA,URINE MANY /HPF; EPITHELIAL CELLS,URINE MODERATE /LPF
[2019-05-23 14:34] LABS: PREGNANCY TEST, URINE NEGATIVE (NEGATIVE)
--- NOTE | 2019-05-23 20:12 | Diagnostic Imaging Report ---
EXAM: CT Abdomen and Pelvis WITH contrast INDICATION: Right lower quadrant pain. COMPARISON: None. TECHNIQUE: Abdomen and pelvis were scanned utilizing a multidetector helical scanner from the lung base to the pubic symphysis after administration of IV contrast. Coronal and sagittal reformations were obtained. Routine protocol was performed. Scan was performed when during portal venous phase. IV CONTRAST: 100 cc Isovue-370. ORAL CONTRAST: Water RADIATION DOSE: Total DLP: 796.78 mGy*cm Estimated effective dose: (DLP x 0.015 x size factor) mSv COMPLICATIONS: None FINDINGS: Examination became available for interpretation at 7:46 PM on 05/23/2019. LINES and TUBES: None. LOWER THORAX: Unremarkable HEPATOBILIARY: Complex low-attenuation lesion with septations in the left lobe measures 8.7 x 8.2 x 7.7 cm on image 25 series 2. This mass results in compression of the biliary tree, with mild intrahepatic biliary dilatation in the lateral segment of the left hepatic lobe. GALLBLADDER: Surgically absent. SPLEEN: No splenomegaly. PANCREAS: No focal masses or ductal dilatation. ADRENALS: No adrenal nodules. KIDNEYS/URETERS: Kidneys enhance symmetrically. No hydronephrosis. No cystic or solid mass lesions. Punctate calculus in the lower pole of the left kidney on image 45 series 2. GI TRACT: No abnormal distention, wall thickening, or evidence of bowel obstruction. Appendix is normal. PELVIC ORGANS/BLADDER: Unremarkable. LYMPH NODES: No lymphadenopathy. VESSELS: There is moderate atherosclerotic disease in the aorta and major arterial branches. PERITONEUM / RETROPERITONEUM: No free air or fluid. BONES: There are degenerative changes in the lumbar spine. SOFT TISSUES: Unremarkable. IMPRESSION: 1. 8.7 cm complex low-attenuation lesion with septations with compression of the biliary system resulting in localized mild intrahepatic biliary dilatation in the lateral segment of the left hepatic lobe. Recommend further evaluation with nonemergent MRI of the liver without and with contrast. 2. Punctate calculus in the lower pole of the left kidney. No hydronephrosis. Signed by: Dr. Rosemary Pritchett M.D. on 05/23/2019 8:09 PM
[2019-05-23] MEDS ORDERED: SODIUM CHLORIDE 0.9% 50ML 50 ML ONE (20:36)
[2019-05-23] MEDS ORDERED: IOPAMIDOL 370 MG/ML 200 ML INFUS..BTL INJ ONE (20:36)
[2019-05-23 21:16] VITALS: BP 155/86
== END 2019-05-23 21:22 | disposition home or self-care (01) ==
LOC: ER 12:49
DX: R10.11 Right upper quadrant pain (principal); R11.0 Nausea; K76.89 Other specified diseases of liver; I10 Essential (primary) hypertension; E11.9 Type 2 diabetes mellitus without complications; Z91.14 Patient's other noncompliance with medication regimen
CPT/HCPCS: 36415; 74177; 80053; 81001; 81025; 85025; 93005; 99284; Q9967